=== PATIENT | female | born 1950 | race Caucasian/White ===

== ENCOUNTER → 2016-11-07 | Outpatient (CLI) | payer MEDICARE ==
[~2016-11-07] MED LIST: ACULAR 3ML 3 ML5 ML OPH; DARVOCET N 1001 TAB PO; DIABETA2.5 MG PO; LISINOPRIL5 MG PO; METFORMIN500 MG PO; OCUFLOX 5 ML5 M1 OPH; PRED FORTE 5 ML5 ML OPH
--- NOTE | ~2016-11-07 | WRIGHTHP ---
[place], [place] PATIENT HISTORY AND PHYSICAL EXAM NAME: YAAKOV YODER [facility] #: [id number] UNIT #: [id number] ROOM: DOCTOR: IRMA NavarreteNATALIA BIRTHDATE: [birth year] DOS: 11/07/2016 NEW PATIENT EVALUATION CHIEF COMPLAINT: Diabetic foot ulcer. HISTORY OF PRESENT ILLNESS: This is a 65-year-old female known to me from last year. She had a diabetic foot ulcer of her left great toe that took many, many weeks to heal and also a trial of hyperbaric oxygen. We eventually did heal her ulcer and it has not reopened until just recently. Apparently, she states she has had a wound open now for the past week or so. She went to see her primary care who referred her to Podiatry who in turn referred her back to us. She states she was started on an antibiotic by Podiatry, Bactrim, apparently it was called in for her. She reports that her sugars have been markedly uncontrolled. Her hemoglobin A1c is over 11. She reports that the sponge buffer thought that the issue is from the brace that she wears for her foot drop. She had new diabetic shoes done by Jessica last year and she thinks that they were too small and that somehow the brace rubbed against the toe and created a very large open wound. PAST MEDICAL HISTORY: Significant for hyperlipidemia; hypertension; type 2 diabetes, uncontrolled; history of diabetic foot ulcers; history of osteomyelitis. She is now just on oral agents, it looks like she is on much less oral agents than prior. She has a history of arthritis. PAST SURGICAL HISTORY: She is status post bilateral knee replacements. FAMILY HISTORY: Significant for heart disease. SOCIAL HISTORY: She does not smoke. She is a former smoker. She is , does not drink alcohol or use drugs. ALLERGIES: No known drug allergies. CURRENT MEDICATIONS: Metformin 500 daily, lisinopril 20 daily, estradiol 0.5 mg tablets, ibuprofen 800 daily, vitamin D 2000 unit capsules daily, cetirizine 10 mg tablets daily and benzonatate 100 mg p.o. daily. Her ABIs were done today and they are INR 1.3 on the left and 1.2 on the right. Pedal pulses are palpable both left and right foot. PHYSICAL EXAMINATION: The wound is quite large and measuring 3.5 x 2.4 x 0.3 in depth and it is located on the left great toe, the plantar aspect. It goes all the way almost to the proximal portion of the toe. There is a large amount of devitalized tissue, epidermal and dermal loss that is just kind of hanging there. There is quite a bit of depth to the wound. There is no overt purulence, cellulitis or odor present. A debridement was done. The tissue removed was devitalized tissue as well as fibrin, slough and subcutaneous tissue. This was accomplished with forceps, scissors, and a curette. The patient tolerated the debridement [place], [place] PATIENT HISTORY AND PHYSICAL EXAM NAME: YAAKOV YODER UNIT #: [id number] ROOM: DOCTOR: NATALIA SOLIS M.D. BIRTHDATE: [birth year] well. There was moderate bleeding that was controlled with pressure. Post-debridement swab culture was obtained. ASSESSMENT AND PLAN: Diabetic foot ulcer looks to be at least a Angeles stage 2. It is quite large. It is in a recurrent area of her left great toe where she has had a wound there before that took quite a long time to heal. She has an issue with her shoes and an offloading device. We will see if we can get Aliza to come at her next appointment to evaluate and see what we can offer her as far as offloading devices go. She is on antibiotic already. We did a swab culture. I will go ahead and order an x-ray. She has uncontrolled diabetes and she is aware of it. She states that her PCP wanted to put her on some new medications, but it was unaffordable for her, so she could not use it and we will see if we can arrange the review coordinator to see her at some point and I think she is definitely should have some diabetic teaching as well. An x-ray has been ordered. We will use Maxorb Silver for now and a bulky dressing, postop shoe and have her follow back up in one week. If anything changes before that she is to follow up sooner and to call us. NATALIA SOLIS MD CM:HISPHYS:PATIENT HISTORY AND PHYSICAL EXAMINATION [id number] NATALIA SOLIS M.D. 11/08/16 0814 interface
== END | disposition home or self-care (01) ==
LOC: WOUNDCARE 00:11
DX: E11.621 Type 2 diabetes mellitus with foot ulcer (principal); L97.522 Non-pressure chronic ulcer of other part of left foot with fat layer exposed; I10 Essential (primary) hypertension; E78.5 Hyperlipidemia, unspecified; M19.90 Unspecified osteoarthritis, unspecified site; E11.69 Type 2 diabetes mellitus with other specified complication; M86.9 Osteomyelitis, unspecified; Z87.891 Personal history of nicotine dependence

== ENCOUNTER → 2016-11-08 | Outpatient (CLI) | payer MEDICARE | END | disposition home or self-care (01) | LOC: RAD 11:12 | DX: E11.621 Type 2 diabetes mellitus with foot ulcer (principal); B96.89 Other specified bacterial agents as the cause of diseases classified elsewhere ==

== ENCOUNTER → 2016-11-14 | Outpatient (CLI) | payer MEDICARE ==
--- NOTE | ~2016-11-14 | PR ---
[place], [place] PROGRESS NOTE NAME: YAAKOV YODER [facility] #: [id number] UNIT #: [id number] ROOM: DOCTOR: IRMA NavarreteNATALIA BIRTHDATE: [birth year] DOS: 11/14/2016 WOUND CARE FOLLOWUP NOTE CHIEF COMPLAINT: Diabetic foot ulcer. LOCATION: The location of the wound is left great toe plantar aspect. SUBJECTIVE: The patient is a 65-year-old female with a history of recurrent diabetic foot ulcers that occurred definitely in the same area of left great toe. She has foot drop as well as neuropathy. Her diabetes is uncontrolled and has recently skyrocketed to a hemoglobin A1c of over 11 per patient report. The patient was seen for the first time last week where she was noted to have a very large ulceration of her left great toe with large amount of necrotic tissue that appeared to be secondary to pressure. The culture was done as well and grew Pseudomonas. The patient was started on ciprofloxacin last week, she has been taking it without any complaints. OBJECTIVE: She says overall she thinks the wound is looking better, it drains a fair amount, though there are no fevers or chills. She has occasional discomfort. She has been using her postop shoe that she had obtained from [email or web address] last year and she cut her old AFO brace to accommodate it. In any case, she also states that she has been using just plain soap and water every day to keep the wound clean. The wound is measuring 2.5 x 2.4 x 0.3. It definitely looks better than last week. There is some granulation tissue. There is some undermining at the 1 o'clock position where it looks like almost 2 separate ulcers, but a little tiny pocket of undermining of 0.3 cm was noted. Debridement was done. The tissue removed was hyperkeratosis biofilm and subcutaneous tissue. Instruments utilized was a #15 blade, forceps and scissors to remove the undermined area and a curette. There was a moderate amount of bleeding that was controlled with pressure. The patient tolerated the debridement well. Cetacaine spray was used for topical anesthesia. Timeout was conducted prior to the start of the procedure. Post-debridement measurements are 3.1 x 2.2 x 0.3. Overall, the wound appears a little bit improved to me. X-ray was negative. Her ESR was within normal limits. ASSESSMENT AND PLAN: Diabetic foot ulcer, Angeles stage II that is stable. Clinically, the patient has had osteomyelitis before; however, is not a well-controlled diabetic. ____ came today to give the patient a walking boot and hopefully that will help alleviate some the pressure as well and help offload the area even further. Followup is in one week. [place], [place] PROGRESS NOTE NAME: YAAKOV YODER UNIT #: [id number] ROOM: DOCTOR: NATALIA SOLIS M.D. BIRTHDATE: [birth year] NATALIA SOLIS MD CM:SYHAM [id number] NATALIA SOLIS M.D. 11/15/16 0514 interface
== END | disposition home or self-care (01) ==
LOC: WOUNDCARE 00:58
DX: E11.621 Type 2 diabetes mellitus with foot ulcer (principal); L97.522 Non-pressure chronic ulcer of other part of left foot with fat layer exposed; E11.40 Type 2 diabetes mellitus with diabetic neuropathy, unspecified; E11.69 Type 2 diabetes mellitus with other specified complication; M86.8X7 Other osteomyelitis, ankle and foot

== ENCOUNTER → 2016-11-21 | Outpatient (CLI) | payer MEDICARE ==
--- NOTE | ~2016-11-21 | PR ---
[place], [place] PROGRESS NOTE NAME: YAAKOV YODER [facility] #: [id number] UNIT #: [id number] ROOM: DOCTOR: IRMA NavarreteNATALIA BIRTHDATE: [birth year] DOS: 11/21/2016 CHIEF COMPLAINT: Diabetic foot ulcer. The location of the wound is the left great toe plantar aspect. HISTORY OF PRESENT ILLNESS: This is a 65-year-old female with recurrent diabetic foot ulcers complicated by neuropathy and foot drop. She was given a offloading boot last week and comes in for her followup wound care appointment today. She is on alginate dressing as well as cleansing the wound with Dakin and she did have some pseudomonas growing from it. She comes in without any specific complaints. The wound is tender on occasion. She says it sweats a lot. She sweats a lot while she is in her work boots, but other than that, no new complaints. OBJECTIVE: VITAL SIGNS: Stable. Temperature is 98.7, pulse is 82, respirations are 18, blood pressure is 102/64. WOUND: The wound is measuring 2.8 x 1.8 x 0.3. Actually a large amount of the wound seems to have filled in pretty nicely with good healthy granulation tissue. There is still some maceration noted and some undermining especially on the more distal part of the wound where it actually looks like it is separates into two wounds now instead of one big wound, but there is still some large amount of devitalized tissue as well. Debridement was done. The tissue removed was fibrin, slough and subcutaneous tissue as well as devitalized epidermis and dermis. Instrument used was forceps, scissors and a curette as well as a #15 blade. Moderate bleeding was controlled with pressure. Post-debridement measurements are as follows 2.8 x 2.6 x 0.3. All the undermining area was cut away as well. ASSESSMENT AND PLAN: Diabetic foot ulcer, Angeles Stage 2. Overall, there is really improvement as far as there is no active acute infection. I did advise her to just back down on the Dakin's and only use it once a week. In the meantime, use normal saline for cleansing the wound. I would like to use Arglaes powders to see if we can dry the wound up a little bit more as it is very macerated still. I would like her to continue with alginate and a bulky dressing as well as offloading boot as well. Some sole offloading pads were applied to the areas below and above the callus to see if we can offload this a little bit better. FOLLOWUP: Followup is in one week. Also I do wanted to mention that she knows her diabetic control is poor and is going to be following up with her PCP regarding medications. [place], [place] PROGRESS NOTE NAME: YAAKOV YODER UNIT #: [id number] ROOM: DOCTOR: NATALIA SOLIS M.D. BIRTHDATE: [birth year] NATALIA SOLIS MD CM:PNRAGHU [id number] NATALIA SOLIS M.D. 11/22/16 0605 interface
== END | disposition home or self-care (01) ==
LOC: WOUNDCARE 03:45
DX: E11.621 Type 2 diabetes mellitus with foot ulcer (principal); L97.522 Non-pressure chronic ulcer of other part of left foot with fat layer exposed; E11.40 Type 2 diabetes mellitus with diabetic neuropathy, unspecified; B96.5 Pseudomonas (aeruginosa) (mallei) (pseudomallei) as the cause of diseases classified elsewhere

== ENCOUNTER → 2016-11-29 | Outpatient (CLI) | payer MEDICARE ==
--- NOTE | ~2016-11-29 | PR ---
[place], [place] PROGRESS NOTE NAME: YAAKOV YODER [facility] #: [id number] UNIT #: [id number] ROOM: DOCTOR: IRMA Navarrete,NATALIA BIRTHDATE: [birth year] DOS: 11/29/2016 CHIEF COMPLAINT: Followup of diabetic foot ulcer. HISTORY OF PRESENT ILLNESS: The location of the wound is the left great toe. It is in plantar aspect. It is a recurrent ulceration. She has been coming to the [facility]ound Clinic for 3 weeks now. She has uncontrolled diabetes. Previous culture grew some pseudomonas. She was started on Dakin's. She had quite a bit of drainage on last occasion. She is on alginate dressing. She comes in today without any specific complaints and says she is completing a course of antibiotics and almost finished with them. PHYSICAL EXAMINATION: VITAL SIGNS: Stable. Temperature is 98.1, pulse is 66, respirations 18, blood pressure of 100/56. The wound is measuring 1.2 x 1.1 x 0.2. The wound is looking much better than it did when she first presented. There is a lot of dried hyperkeratosis around the periwound. It is definitely filling in and epithelializing. The maceration has also improved quite a bit. A selective debridement was done just to remove fibrin, slough and hyperkeratotic area. This was accomplished with forceps, scissors and a 15 blade. The patient tolerated the debridement well. Post-debridement measurements are slightly bigger 1.4 x 1.1 x 0.2. ASSESSMENT AND PLAN: Diabetic foot ulcer that is definitely improving. We will continue with the current regimen. We prescribed Arglaes powder, but she has not got it yet, so hopefully when she gets that, that that will help as well, but overall it does seem to be definitely improving. NATALIA SOLIS MD CM:SHYAM [id number] NATALIA SOLIS M.D. 11/30/16 0552 interface
== END | disposition home or self-care (01) ==
LOC: WOUNDCARE 03:15
DX: E11.621 Type 2 diabetes mellitus with foot ulcer (principal); L97.522 Non-pressure chronic ulcer of other part of left foot with fat layer exposed

== ENCOUNTER → 2016-12-05 | Outpatient (CLI) | payer MEDICARE ==
--- NOTE | ~2016-12-05 | PR ---
[place], [place] PROGRESS NOTE NAME: YAAKOV YODER [facility] #: [id number] UNIT #: [id number] ROOM: DOCTOR: NATALIA SOLIS M.D. BIRTHDATE: [birth year] DOS: 12/05/2016 CHIEF COMPLAINT: Followup of diabetic foot ulcer. SUBJECTIVE: The location of the wound is left great toe. It is on the plantar aspect, it is recurrent ulcerations and she has been coming to the Wound Clinic for 4 weeks now. The wound has been steadily improving. She offers no specific complaints. No fevers or chills are noted. OBJECTIVE: VITAL SIGNS: Temperature is 98.2, pulse is 74, respirations 18, blood pressure is 122/78. SKIN: The wound is measuring 1.1 x 0.6 x 0.1. It definitely looks good. It is getting smaller. There is no sign of infection. There is still a lot of hyperkeratotic callus around the wound, but it is definitely improving. Selective debridement was done to remove hyperkeratotic callus as well as biofilm. This occurred with scalpel. There was moderate bleeding, controlled with pressure. Post-debridement measurements are unchanged. The patient tolerated the procedure well. ASSESSMENT AND PLAN: Diabetic foot ulcer, Angeles stage I. It is definitely improving. We will continue with current regimen, have her follow up in one week. NATALIA SOLIS MD CM:SHYAM [id number] NATALIA SOLIS M.D. 12/06/16 1030 interface
== END | disposition home or self-care (01) ==
LOC: WOUNDCARE 01:55
DX: E11.621 Type 2 diabetes mellitus with foot ulcer (principal); L97.522 Non-pressure chronic ulcer of other part of left foot with fat layer exposed; L84 Corns and callosities

== ENCOUNTER → 2016-12-14 | Outpatient (CLI) | payer MEDICARE | END | disposition home or self-care (01) | LOC: WOUNDCARE 01:49 | DX: E11.621 Type 2 diabetes mellitus with foot ulcer (principal); L97.522 Non-pressure chronic ulcer of other part of left foot with fat layer exposed; I10 Essential (primary) hypertension; E78.5 Hyperlipidemia, unspecified; M19.90 Unspecified osteoarthritis, unspecified site; Z87.891 Personal history of nicotine dependence ==

== ENCOUNTER → 2016-12-21 | Outpatient (CLI) | payer MEDICARE | END | disposition home or self-care (01) | LOC: WOUNDCARE 02:30 | DX: E11.621 Type 2 diabetes mellitus with foot ulcer (principal); L97.522 Non-pressure chronic ulcer of other part of left foot with fat layer exposed; I10 Essential (primary) hypertension; E78.5 Hyperlipidemia, unspecified; M19.90 Unspecified osteoarthritis, unspecified site; Z87.891 Personal history of nicotine dependence ==

== ENCOUNTER → 2016-12-28 | Outpatient (CLI) | payer MEDICARE | END | disposition home or self-care (01) | LOC: WOUNDCARE 01:10 | DX: E11.621 Type 2 diabetes mellitus with foot ulcer (principal); L97.522 Non-pressure chronic ulcer of other part of left foot with fat layer exposed; I10 Essential (primary) hypertension; E78.5 Hyperlipidemia, unspecified; M19.90 Unspecified osteoarthritis, unspecified site; Z87.891 Personal history of nicotine dependence ==

== ENCOUNTER → 2017-01-04 | Outpatient (CLI) | payer MEDICARE | END | disposition home or self-care (01) | LOC: WOUNDCARE 04:00 | DX: E11.621 Type 2 diabetes mellitus with foot ulcer (principal); L97.522 Non-pressure chronic ulcer of other part of left foot with fat layer exposed; I10 Essential (primary) hypertension; E78.5 Hyperlipidemia, unspecified; M19.90 Unspecified osteoarthritis, unspecified site; Z96.653 Presence of artificial knee joint, bilateral; Z87.891 Personal history of nicotine dependence ==

== ENCOUNTER → 2017-01-11 | Outpatient (CLI) | payer MEDICARE | LOC: WOUNDCARE 01:09 | DX: E11.621 Type 2 diabetes mellitus with foot ulcer (principal); L97.522 Non-pressure chronic ulcer of other part of left foot with fat layer exposed; I10 Essential (primary) hypertension; E78.5 Hyperlipidemia, unspecified; M19.90 Unspecified osteoarthritis, unspecified site; Z87.891 Personal history of nicotine dependence ==

== ENCOUNTER → 2017-01-18 | Outpatient (CLI) | payer MEDICARE | END | disposition home or self-care (01) | LOC: WOUNDCARE 04:37 | DX: E11.621 Type 2 diabetes mellitus with foot ulcer (principal); L97.522 Non-pressure chronic ulcer of other part of left foot with fat layer exposed; I10 Essential (primary) hypertension; E78.5 Hyperlipidemia, unspecified; M19.90 Unspecified osteoarthritis, unspecified site; Z87.891 Personal history of nicotine dependence ==

== ENCOUNTER → 2017-01-25 | Outpatient (CLI) | payer MEDICARE | END | disposition home or self-care (01) | LOC: WOUNDCARE 03:59 | DX: E11.621 Type 2 diabetes mellitus with foot ulcer (principal); L97.522 Non-pressure chronic ulcer of other part of left foot with fat layer exposed; I10 Essential (primary) hypertension; E78.5 Hyperlipidemia, unspecified; M19.90 Unspecified osteoarthritis, unspecified site; Z87.891 Personal history of nicotine dependence ==

== ENCOUNTER → 2017-02-01 | Outpatient (CLI) | payer MEDICARE | END | disposition home or self-care (01) | LOC: WOUNDCARE 04:28 | DX: E11.621 Type 2 diabetes mellitus with foot ulcer (principal); L97.522 Non-pressure chronic ulcer of other part of left foot with fat layer exposed; I10 Essential (primary) hypertension; E78.5 Hyperlipidemia, unspecified; M19.90 Unspecified osteoarthritis, unspecified site; Z87.891 Personal history of nicotine dependence ==

== ENCOUNTER → 2017-02-08 | Outpatient (CLI) | payer MEDICARE | END | disposition home or self-care (01) | LOC: WOUNDCARE 01:03 | DX: E11.621 Type 2 diabetes mellitus with foot ulcer (principal); L97.522 Non-pressure chronic ulcer of other part of left foot with fat layer exposed; I10 Essential (primary) hypertension; E78.5 Hyperlipidemia, unspecified; M19.90 Unspecified osteoarthritis, unspecified site; Z87.891 Personal history of nicotine dependence ==

== ENCOUNTER → 2017-02-15 | Outpatient (CLI) | payer MEDICARE | END | disposition home or self-care (01) | LOC: WOUNDCARE 02:19 | DX: E11.621 Type 2 diabetes mellitus with foot ulcer (principal); L97.522 Non-pressure chronic ulcer of other part of left foot with fat layer exposed; I10 Essential (primary) hypertension; E78.5 Hyperlipidemia, unspecified; M19.90 Unspecified osteoarthritis, unspecified site; Z87.891 Personal history of nicotine dependence ==

== ENCOUNTER → 2017-07-25 | Outpatient (CLI) | payer MEDICARE | END | disposition home or self-care (01) | LOC: MAMMO 16:22 | DX: Z12.31 Encounter for screening mammogram for malignant neoplasm of breast (principal) ==

== ENCOUNTER → 2017-10-17 | Outpatient (CLI) | payer MEDICARE | END | disposition home or self-care (01) | LOC: MAMMO 13:05 | DX: R92.8 Other abnormal and inconclusive findings on diagnostic imaging of breast (principal) ==

== ENCOUNTER → 2017-10-31 | Day surgery (SDC) | payer MEDICARE ==
[2017-10-31 13:48] LABS: ACT PARTIAL THROMBO TIME 24.3 SECONDS (20.8-31.5); INTERNATIONAL NORM RATIO 0.9 (2.0-3.5)
== END | disposition home or self-care (01) ==
LOC: SDC 04:25
PROVIDERS: Internal Medicine
DX: C50.811 Malignant neoplasm of overlapping sites of right female breast (principal); R92.8 Other abnormal and inconclusive findings on diagnostic imaging of breast; Z79.01 Long term (current) use of anticoagulants

== ENCOUNTER 2018-11-19 11:53 | Inpatient (IN) | payer MEDICARE ==
[~2018-11-19] VITALS: Ht 165 cm; Wt 67.0 kg
--- NOTE | ~2018-11-19 | EKG ---
[place], [place] ELECTROCARDIOGRAM REPORT NAME: YAAKOV YODER UNIT #: [id number] ROOM: 507 DOCTOR: CLARISA DRAFT REPORT BIRTHDATE: [birth year] [facility] Test Date: 2018-11-19 Test Time: 12:14:14 Pat Name: YAAKOV YODER Department: Room: 507 Gender: F Nfl Player: Ashley Barkley : 1950 Requested By: SHIRA MARCUS Order Number: [id number] Reading MD: Quinten Nicole MD Measurements Intervals [place] Rate: 80 P: 22 AR: 161 QRS: 46 QRSD: 97 T: 13 QT: 444 QTc: 513 Interpretive Statements Sinus rhythm Nonspecific ST changes Prolonged QT interval Electronically Signed On 11-20-2018 4:43:38 PDT by Quinten Nicole MD CM:EKGRPT:ELECTROCARDIOGRAM REPORT [id number] SHIRA MARCUS EPIPHANY DRAFT REPORT SHIRA MARCUS
[2018-11-19 11:56] VITALS: BP 112/49
[2018-11-19 12:27] LABS: BASO % 0.4 % (0.0-1.0); HEMOGLOBIN 9.3 g/dl (12.0-16.0); LYMPH % 17.7 % (27.0-41.0); MEAN CELL VOLUME 92.1 fl (81.0-99.0); MEAN CORPUSCULAR HGB 30.6 pg (27.0-31.0); MEAN CORPUSCULAR HGB CONC 33.2 g/dl (33.0-37.0); MEAN PLATELET VOLUME 10.1 fl (9.6-12.3); MONO # 0.5 10*3/uL (0.1-1.0); MONO % 9.5 % (3.0-9.0); NEUT % 71.9 % (47.0-73.0); PLATELET COUNT AUTOMATED 267 10*3/uL (130-400); RED BLOOD COUNT 3.04 10*6/uL (4.10-5.10); RED CELL DISTRI WIDTH 13.8 % (0-14.5); WHITE BLOOD COUNT 5.6 10*3/uL (4.8-10.8)
[2018-11-19 12:43] LABS: ALBUMIN 2.5 gm/dl (3.1-4.5); ALKALINE PHOSPHATASE 136 U/L (45-117); BUN 13 mg/dl (7-24); CHLORIDE 95 mmol/L (98-107); CREATININE 1.05 mg/dL (0.55-1.02); SGOT/AST 10 IU/L (3-35); SGPT/ALT 19 U/L (12-78); SODIUM 130 mmol/L (136-145); TOTAL PROTEIN 6.9 gm/dL (6.4-8.2)
[2018-11-19] MEDS ORDERED: LISINOPRIL20 MG PO (12:43)
[2018-11-19] MEDS ORDERED: VITAMIN D-32000 UNI1 PO (12:44)
[2018-11-19] MEDS ORDERED: METFORMIN HYDR500 MG PO (12:44)
[2018-11-19] MEDS ORDERED: GLIPIZIDE10 M2 PO (12:44)
[2018-11-19 12:50] LABS: TROPONIN I < 0.015 ng/ml (<0.045)
[2018-11-19 12:51] LABS: POTASSIUM 2.1 mmol/L (3.5-5.1)
[2018-11-19 14:08] VITALS: BP 98/47
[2018-11-19 16:00] VITALS: BP 119/51
[2018-11-19 20:00] VITALS: BP 110/51
[2018-11-20] VITALS: BP 106/56
[2018-11-20 06:25] LABS: BASO % 0.4 % (0.0-1.0); EOS % 0.2 % (1.0-4.0); HEMATOCRIT 27.2 % (37.0-47.0); HEMOGLOBIN 8.9 g/dl (12.0-16.0); LYMPH # 1.6 10*3/uL (1.3-4.4); LYMPH % 30.4 % (27.0-41.0); MEAN CELL VOLUME 92.8 fl (81.0-99.0); MEAN CORPUSCULAR HGB 30.4 pg (27.0-31.0); MEAN CORPUSCULAR HGB CONC 32.7 g/dl (33.0-37.0); MEAN PLATELET VOLUME 10.1 fl (9.6-12.3); MONO # 0.6 10*3/uL (0.1-1.0); MONO % 10.7 % (3.0-9.0); NEUT % 57.5 % (47.0-73.0); PLATELET COUNT AUTOMATED 284 10*3/uL (130-400); RED BLOOD COUNT 2.93 10*6/uL (4.10-5.10); RED CELL DISTRI WIDTH 13.7 % (0-14.5); WHITE BLOOD COUNT 5.2 10*3/uL (4.8-10.8)
[2018-11-20 06:33] LABS: BUN 13 mg/dl (7-24); CHLORIDE 105 mmol/L (98-107); CHOLESTEROL 120 mg/dL (<200); CREATININE 0.75 mg/dL (0.55-1.02); HDL CHOLESTEROL 30 mg/dl (40-60); LDL CHOLESTEROL 54 mg/dL (9-159); PHOSPHOROUS 1.7 mg/dL (2.5-4.9); POTASSIUM 2.6 mmol/L (3.5-5.1); SODIUM 140 mmol/L (136-145); TRIGLYCERIDES 179 mg/dl (<150); VLDL CHOLESTEROL 36 mg/dL (6-40)
[2018-11-20 08:00] VITALS: BP 106/72
[2018-11-20 12:00] VITALS: BP 100/48
[2018-11-20] MEDS ORDERED: POTASSIUM CHLO20 ME3 PO (13:22)
== END 2018-11-20 14:24 | disposition home or self-care (01) | DRG 640 ==
LOC: ED 11:53 → 5E 13:07 → EDHOLD 13:07 → 5E 13:28
PROVIDERS: Nurse Practitioner Family; Student in an Organized Health Care Education/Training Program; ADMIT Internal Medicine
DX: E87.6 Hypokalemia (principal); E43 Unspecified severe protein-calorie malnutrition; E87.1 Hypo-osmolality and hyponatremia; D64.9 Anemia, unspecified; E87.8 Other disorders of electrolyte and fluid balance, not elsewhere classified; E11.65 Type 2 diabetes mellitus with hyperglycemia; R74.8 Abnormal levels of other serum enzymes; N18.3 Chronic kidney disease, stage 3 (moderate); I12.9 Hypertensive chronic kidney disease with stage 1 through stage 4 chronic kidney disease, or unspecified chronic kidney disease; Z96.651 Presence of right artificial knee joint; C50.919 Malignant neoplasm of unspecified site of unspecified female breast; E11.22 Type 2 diabetes mellitus with diabetic chronic kidney disease; E66.3 Overweight; D89.9 Disorder involving the immune mechanism, unspecified; S91.102A Unspecified open wound of left great toe without damage to nail, initial encounter; X58.XXXA Exposure to other specified factors, initial encounter; Y93.89 Activity, other specified; Y92.89 Other specified places as the place of occurrence of the external cause; Y99.8 Other external cause status; Z92.21 Personal history of antineoplastic chemotherapy; Z87.891 Personal history of nicotine dependence; Z80.8 Family history of malignant neoplasm of other organs or systems; Z79.899 Other long term (current) drug therapy; Z79.84 Long term (current) use of oral hypoglycemic drugs; Z82.49 Family history of ischemic heart disease and other diseases of the circulatory system; Z83.3 Family history of diabetes mellitus; Z84.1 Family history of disorders of kidney and ureter; Z68.24 Body mass index [BMI] 24.0-24.9, adult

== ENCOUNTER 2019-12-06 19:06 | Inpatient (IN) | payer MEDICARE ==
[~2019-12-06] VITALS: Ht 165.1 cm; Wt 69.8 kg
[~2019-12-06 19:06] MED LIST changes: +GLIPIZIDE10 M2 PO; +LISINOPRIL20 MG PO; +METFORMIN HYDR500 MG PO; +POTASSIUM CHLO20 ME3 PO; +VITAMIN D-32000 UNI1 PO
[2019-12-06 19:10] VITALS: BP 148/112
[2019-12-06 19:52] LABS: BASO % 0.1 % (0.0-1.0); EOS # 0.1 10*3/uL (0.0-0.4); EOS % 0.7 % (1.0-4.0); HEMATOCRIT 32.7 % (37.0-47.0); LYMPH # 1.6 10*3/uL (1.3-4.4); LYMPH % 21.8 % (27.0-41.0); MEAN CELL VOLUME 89.8 fl (81.0-99.0); MEAN CORPUSCULAR HGB 30.2 pg (27.0-31.0); MEAN CORPUSCULAR HGB CONC 33.6 g/dl (33.0-37.0); MEAN PLATELET VOLUME 10.1 fl (9.6-12.3); MONO # 0.8 10*3/uL (0.1-1.0); MONO % 11.8 % (3.0-9.0); NEUT # 4.6 10*3/uL (2.3-7.9); PLATELET COUNT AUTOMATED 349 10*3/uL (130-400); RED BLOOD COUNT 3.64 10*6/uL (4.10-5.10); RED CELL DISTRI WIDTH 12.3 % (0-14.5); WHITE BLOOD COUNT 7.1 10*3/uL (4.8-10.8)
[2019-12-06 20:11] LABS: ALKALINE PHOSPHATASE 161 U/L (45-117); BUN 25 mg/dl (7-24); CHLORIDE 100 mmol/L (98-107); CREATININE 0.97 mg/dL (0.55-1.02); POTASSIUM 4.6 mmol/L (3.5-5.1); SGOT/AST 8 IU/L (3-35); SGPT/ALT 14 U/L (12-78); SODIUM 130 mmol/L (136-145); TOTAL PROTEIN 8.2 gm/dL (6.4-8.2)
[2019-12-06 20:17] LABS: THYROID STIM HORMONE (HS) 0.163 uIU/ml (0.358-4.75)
[2019-12-06 20:20] LABS: TROPONIN I < 0.015 ng/ml (<0.045)
[2019-12-06 21:00] LABS: BILIRUBIN NEGATIVE; CLARITY CLEAR (CLEAR); COLOR YELLOW (YELLOW); GLUCOSE 3+; KETONE NEGATIVE; SPECIFIC GRAVITY > 1.030 (1.001-1.030)
[2019-12-06 21:01] LABS: BACTERIA TRACE; BLOOD NEGATIVE (NEGATIVE); LEUKO ESTERASE NEGATIVE (NEGATIVE); NITRITE NEGATIVE (NEGATIVE); UROBILINOGEN 0.2 E.U./dl (0.0-1.0); YEAST TRACE
[2019-12-06 21:13] VITALS: BP 120/61
[2019-12-06 22:40] VITALS: BP 132/70
--- NOTE | 2019-12-06 22:40 | NUR ---
A 69, admitted to , under the services of ALLISON aDvid DO with a diagnosis of DIABETIC FOOT ULCER, HYPOKALEMIA, UNCONTROLLED DIABETES MELLITUS. Chief complaint is WOUND CHECK. Patient arrived via ambulatory from ER. Monitor applied. Initial assessment completed. Vital signs taken and recorded. ALLISON DAVID DO notified of admission to the unit. Orders received. See assessment for past medical history, medications and allergies. Patient and/or family oriented to unit. [facility]. Clothing/patient valuable form completed. TANISHA CRUZ
--- NOTE | 2019-12-06 23:32 | NUR ---
[facility] ANSWERING SERVICE NOTIFIED OF NEW CONSULT FOR DIABETIC FOOT WOUND.
--- NOTE | 2019-12-06 23:40 | NUR ---
PODIATRY RESIDENT NOTIFIED OF NEW CONSULT FOR DIABETIC FOOT WOUND AND LONG TOE NAILS. LABS AND WOUND REVIEWED. DR. TRAVIS SEE IN THE MORNING.
--- NOTE | 2019-12-06 23:42 | NUR ---
DR. BRAND NOTIFIED OF PT'S HOME MEDS UTD.
[2019-12-07] VITALS: BP 120/61
[2019-12-07 06:36] LABS: BASO % 0.3 % (0.0-1.0); EOS # 0.1 10*3/uL (0.0-0.4); EOS % 0.7 % (1.0-4.0); HEMATOCRIT 36.4 % (37.0-47.0); LYMPH % 28.5 % (27.0-41.0); MEAN CELL VOLUME 92.6 fl (81.0-99.0); MEAN CORPUSCULAR HGB 29.5 pg (27.0-31.0); MEAN CORPUSCULAR HGB CONC 31.9 g/dl (33.0-37.0); MEAN PLATELET VOLUME 10.4 fl (9.6-12.3); MONO # 0.7 10*3/uL (0.1-1.0); MONO % 9.9 % (3.0-9.0); NEUT # 4.1 10*3/uL (2.3-7.9); NEUT % 59.9 % (47.0-73.0); PLATELET COUNT AUTOMATED 382 10*3/uL (130-400); RED BLOOD COUNT 3.93 10*6/uL (4.10-5.10); RED CELL DISTRI WIDTH 12.4 % (0-14.5); WHITE BLOOD COUNT 6.9 10*3/uL (4.8-10.8)
[2019-12-07 07:10] LABS: BUN 18 mg/dl (7-24); CHLORIDE 107 mmol/L (98-107); CHOLESTEROL 168 mg/dL (<200); CREATININE 0.81 mg/dL (0.55-1.02); HDL CHOLESTEROL 44 mg/dl (40-60); LDL CHOLESTEROL 90 mg/dL (9-159); SODIUM 137 mmol/L (136-145); TRIGLYCERIDES 172 mg/dl (<150); VLDL CHOLESTEROL 34 mg/dL (6-40)
[2019-12-07 07:16] LABS: FREE T4 1.27 ng/dl (0.76-1.46)
--- NOTE | 2019-12-07 11:09 | NUR ---
THU in to talk to patient. Patient states lives at home with 3 grown sons. There are 3 steps in the home. Physician: no PCP, denies referral to [facility] Home health services: no Patient's level of ADLs: INDEPENDENT Patient has working utilities: yes DME: walker,cane, wheelchair formerly used by pt's who is now Follow-up physician's appointment after d/c: Pt wants to schedule herself Does patient want to access PORTAL?: no Discharge plan Pt states that she resides with her 3 grown sons. She has a ramp at one entrance to her trailer and 3 steps at the other entrance. Pt states that her PCP retired and she has yet to become established with a new PCP. Spoke to pt about the [facility]. Pt denies the need for this referral stating that she would rather find her own PCP. Confirmed with pt the importance of PCP follow-up. Discussed services after discharge. Pt stated that she is not interested in [facility]. Pt was pleasant but firm in stating that she will not have any discharge needs. ALBER WITT
[2019-12-07 12:00] VITALS: BP 121/68
[2019-12-07 16:00] VITALS: BP 111/76
--- NOTE | 2019-12-07 19:00 | NUR ---
ASSUMED CARE FOR THIS PT AT THIS TIME. PT AWAKE IN BED WATCHING TV. PT DENIES NEED FOR PAIN MED. DRSG TO LT FOOT DRY/INTACT. + LEFT POPLITEAL PULSE PALPATED. CALL LIGHT IN REACH.
[2019-12-07 20:00] VITALS: BP 98/53
[2019-12-08] VITALS: BP 119/67
--- NOTE | 2019-12-08 08:00 | NUR ---
IN TO ROOM, PATIENT AWAKE, ALERT AND ORIENTED. RESPIRATIONS ARE EASY AND REGULAR ON ROOM AIR. PT STATES SHE IS HAVING SOME PAIN IN HER LEFT TOE, RATED AT A 5. PT EDUCATED ON PAIN MANAGEMENT. PT IS ABLE TO REPOSITION SELF AND IS ENCOURAGED TO DO SO. BED IN LOWEST LOCKED POSITION AND CALL LIGHT WITHIN REACH. WILL CONTINUE TO MONITOR.
--- NOTE | 2019-12-08 08:32 | NUR ---
PT COMPLAINS OF LEFT TOE PAIN RATED AT A 5. PRN NORCO ADMINISTERED. WILL MONITOR FOR EFFECTIVENESS.
--- NOTE | 2019-12-08 09:15 | NUR ---
PT STATES THAT HER PAIN IN BETTER. NORCO CONSIDERED EFFECTIVE.
[2019-12-08 12:00] VITALS: BP 110/70
--- NOTE | 2019-12-08 13:00 | NUR ---
PATIENT AWAKE, ALERT AND ORIENTED. NO STATED COMPLAINTS AT THIS TIME. ANTIBIOTICS RUNNING. RESPIRATIONS ARE EASY AND REGULAR, NO DISTRESS NOTED. BED IN LOWEST LOCKED POSITION AND CALL LIGHT WITHIN REACH. DRESSING TO LEFT FOOT INTACT. WILL CONTINUE TO MONITOR.
[2019-12-08 16:00] VITALS: BP 123/72
[2019-12-08 20:00] VITALS: BP 130/72
[2019-12-09] VITALS: BP 122/72
--- NOTE | 2019-12-09 02:56 | NUR ---
24 HR chart check completed.
[2019-12-09 06:14] LABS: BUN 15 mg/dl (7-24); CHLORIDE 110 mmol/L (98-107); CREATININE 0.77 mg/dL (0.55-1.02); POTASSIUM 3.8 mmol/L (3.5-5.1); SODIUM 138 mmol/L (136-145)
[2019-12-09 06:30] LABS: BASO % 0.4 % (0.0-1.0); EOS # 0.1 10*3/uL (0.0-0.4); EOS % 1.7 % (1.0-4.0); HEMATOCRIT 34.4 % (37.0-47.0); LYMPH % 41.7 % (27.0-41.0); MEAN CORPUSCULAR HGB 29.8 pg (27.0-31.0); MEAN CORPUSCULAR HGB CONC 31.7 g/dl (33.0-37.0); MEAN PLATELET VOLUME 10.4 fl (9.6-12.3); MONO # 0.5 10*3/uL (0.1-1.0); MONO % 9.8 % (3.0-9.0); NEUT # 2.2 10*3/uL (2.3-7.9); NEUT % 45.1 % (47.0-73.0); PLATELET COUNT AUTOMATED 352 10*3/uL (130-400); RED BLOOD COUNT 3.66 10*6/uL (4.10-5.10); RED CELL DISTRI WIDTH 12.6 % (0-14.5); WHITE BLOOD COUNT 4.8 10*3/uL (4.8-10.8)
[2019-12-09 08:00] VITALS: BP 134/67
--- NOTE | 2019-12-09 09:00 | NUR ---
Radio Artist in to talk to patient. Patient states lives at home with her 2 sons. There are 0 steps in the home. Physician: no family physician. She was seeing Dr. Lisseth Seigel. [facility] Home health services: none Patient's level of ADLs: MINIMAL ASSIST Patient has working utilities: yes DME: walker, wheelchair Follow-up physician's appointment after d/c: will be made by the hospitalist nurse director upon discharge Does patient want to access PORTAL?: no Discharge plan discussed with patient. She lives at home with her 2 sons. She states she is independent in her ADLs and ambulation. She has a walker and a wheelchair at home if needed. Discussed short term rehab and home health care services and she declines. CM will continue to follow for any discharge planning needs. She states she is waiting for her discharge and if she is not discharged today she knows how to sign herself out. When medically stable she will be discharged to home. She states she drove herself here and will drive herself home. DELANO HO
[2019-12-09] MEDS ORDERED: ATORVASTATIN CA40 M1 PO (10:24)
[2019-12-09] MEDS ORDERED: OMNICEF300 MG PO (10:24)
[2019-12-09] MEDS ORDERED: DOXYCYCLINE100 M3 PO (10:24)
[2019-12-09] MEDS ORDERED: HUMALOG100 UNIT/1 SC (10:24)
[2019-12-09] MEDS ORDERED: LANTUS SOL100 UNIT/1 SC (10:24)
--- NOTE | 2019-12-09 12:17 | NUR ---
Discharge instructions reviewed with patient/family. Patient receptive and verbalizes understanding. Follow-up care arranged. Written instructions given to patient/family. JAKUB ORTIZ
== END 2019-12-09 12:17 | disposition home or self-care (01) | DRG 638 ==
LOC: ED 19:06 → EDHOLD 21:27 → 5E 21:27
PROVIDERS: Emergency Medicine Emergency Medical Services; Family Medicine; Student in an Organized Health Care Education/Training Program; ADMIT Student in an Organized Health Care Education/Training Program; ATTEND Student in an Organized Health Care Education/Training Program
PROC: 0H9NXZZ Drainage of Left Foot Skin, External Approach (ICD-10-PCS; principal; 2019-12-06)
DX: E11.621 Type 2 diabetes mellitus with foot ulcer (principal); E44.0 Moderate protein-calorie malnutrition; E87.1 Hypo-osmolality and hyponatremia; E11.65 Type 2 diabetes mellitus with hyperglycemia; L97.522 Non-pressure chronic ulcer of other part of left foot with fat layer exposed; D72.810 Lymphocytopenia; R79.82 Elevated C-reactive protein (CRP); E87.6 Hypokalemia; E66.3 Overweight; D64.9 Anemia, unspecified; E11.22 Type 2 diabetes mellitus with diabetic chronic kidney disease; N18.3 Chronic kidney disease, stage 3 (moderate); L03.032 Cellulitis of left toe; I12.9 Hypertensive chronic kidney disease with stage 1 through stage 4 chronic kidney disease, or unspecified chronic kidney disease; E78.5 Hyperlipidemia, unspecified; E55.9 Vitamin D deficiency, unspecified; Z82.49 Family history of ischemic heart disease and other diseases of the circulatory system; Z79.4 Long term (current) use of insulin; Z83.3 Family history of diabetes mellitus; Z84.1 Family history of disorders of kidney and ureter; Z68.25 Body mass index [BMI] 25.0-25.9, adult

== ENCOUNTER 2020-02-27 23:42 | Inpatient (IN) | payer MEDICARE ==
[~2020-02-27] VITALS: Ht 160 cm; Wt 81.4 kg
[~2020-02-27 23:42] MED LIST changes: +ATORVASTATIN CA40 M1 PO; +DOXYCYCLINE100 M3 PO; +HUMALOG100 UNIT/1 SC; +LANTUS SOL100 UNIT/1 SC; +OMNICEF300 MG PO
[2020-02-27 23:49] VITALS: BP 168/95
[2020-02-28] VITALS (9 sets, daily range): BP systolic 107–167; BP diastolic 46–117
[2020-02-28 00:12] LABS: BASO % 0.2 % (0.0-1.0); EOS % 0.2 % (1.0-4.0); HEMATOCRIT 29.8 % (37.0-47.0); LYMPH # 0.8 10*3/uL (1.3-4.4); LYMPH % 16.5 % (27.0-41.0); MEAN CELL VOLUME 94.3 fl (81.0-99.0); MEAN CORPUSCULAR HGB 27.5 pg (27.0-31.0); MEAN CORPUSCULAR HGB CONC 29.2 g/dl (33.0-37.0); MEAN PLATELET VOLUME 9.4 fl (9.6-12.3); MONO # 0.2 10*3/uL (0.1-1.0); MONO % 3.6 % (3.0-9.0); NEUT # 3.9 10*3/uL (2.3-7.9); NEUT % 78.9 % (47.0-73.0); PLATELET COUNT AUTOMATED 435 10*3/uL (130-400); RED BLOOD COUNT 3.16 10*6/uL (4.10-5.10)
[2020-02-28 00:28] LABS: ALBUMIN 3.1 gm/dl (3.1-4.5); ALKALINE PHOSPHATASE 192 U/L (45-117); BUN 28 mg/dl (7-24); CHLORIDE 106 mmol/L (98-107); CREATININE 0.89 mg/dL (0.55-1.02); POTASSIUM 4.9 mmol/L (3.5-5.1); SGOT/AST 49 IU/L (3-35); SGPT/ALT 40 U/L (12-78); SODIUM 136 mmol/L (136-145); TOTAL PROTEIN 8.5 gm/dL (6.4-8.2)
[2020-02-28 01:52] LABS: ARTERIAL BLOOD GAS PH 7.336 (7.35-7.45)
[2020-02-28 01:53] LABS: ABG BASE EXCESS -7.3 mmol/L (-2.0-2.0)
[2020-02-28] MEDS ORDERED: ASPIRIN ADULT L81 M2 PO (04:53)
[2020-02-28] MEDS ORDERED: AMIODARONE HCL400 MG PO (04:53)
[2020-02-28] MEDS ORDERED: LIPITOR20 MG PO (04:55)
[2020-02-28] MEDS ORDERED: DAKIN'S473 ML T (05:00)
[2020-02-28] MEDS ORDERED: DECADRON6 M1 PO (05:02)
[2020-02-28] MEDS ORDERED: LASIX40 MG PO (05:05)
[2020-02-28] MEDS ORDERED: SENNA PLUS 8.61 EACH PO (05:07)
[2020-02-28] MEDS ORDERED: ZINC SULFATE220 M2 PO (05:09)
[2020-02-28] MEDS ORDERED: VITAMIN D250 MC1 PO (05:12)
[2020-02-28] MEDS ORDERED: GLUCOTROL10 MG PO (05:13)
[2020-02-28] MEDS ORDERED: LANTUS SOL100 UNIT/1 SC (05:14)
[2020-02-28] MEDS ORDERED: K-TAB20 MEQ PO (05:16)
[2020-02-28] MEDS ORDERED: [UNRECOGNIZED DRUG - CODE] IJ (05:24)
[2020-02-28] MEDS ORDERED: [UNRECOGNIZED DRUG - OTHER] PO (05:25)
[2020-02-28] MEDS ORDERED: EMERGEN-C 500500 MG PO (05:27)
[2020-02-28] MEDS ORDERED: PAIN RELIEVER650 MG PO (05:28)
--- NOTE | 2020-02-28 05:30 | NUR ---
MED REC COMPLETED
[2020-02-28 06:22] LABS: INTERNATIONAL NORM RATIO 2.2 (2.0-3.5)
--- NOTE | 2020-02-28 08:07 | NUR ---
I CALLED THE PATIENT BREAKFAST TRAY IN
--- NOTE | 2020-02-28 09:11 | NUR ---
THE PATIENT TOOK HER BIPAP OFF TO EAT. THE NC WAS PUT BACK ON.
--- NOTE | 2020-02-28 10:09 | NUR ---
THE [facility] BED IS NOT READY YET FOR THE PATIENT
--- NOTE | 2020-02-28 11:00 | NUR ---
DR PONCE NOTIFIED OF NEW CONSULT FOR COVID 19. PT CURRENTLY STILL IN ED. HE WILL ROUND IN ED AND SEE PT.
[2020-02-28 11:36] LABS: ARTERIAL BLOOD GAS PH 7.367 (7.35-7.45)
[2020-02-28 11:38] LABS: VITAMIN D, 25-HYDROXY 37.9 ng/mL (30-100)
[2020-02-28 11:42] LABS: ABG BASE EXCESS -5.6 mmol/L (-2.0-2.0)
--- NOTE | 2020-02-28 12:45 | NUR ---
A 69, admitted to 4E, under the services of OZZIE Almanza DO with a diagnosis of COVID 19 PNEUMONIA. Chief complaint is INCREASED SHORTNESS OF BREATH. Patient arrived via bed from ER. Monitor applied. Initial assessment completed. Vital signs taken and recorded. OZZIE ALMANZA DO notified of admission to the unit. Orders received. See assessment for past medical history, medications and allergies. Patient and/or family oriented to unit. [facility] visitation policy reviewed. Clothing/patient valuable form completed. CHERY WHITTINGTON
--- NOTE | 2020-02-28 13:34 | NUR ---
DR DOVER'S OFFICE NOTIFIED OF NEW CONSULT FOR COVID 19.
--- NOTE | 2020-02-28 15:45 | NUR ---
PATIENT ADAMANTLY REFUSED BI-PAP AT THIS TIME. PULSE OX 99% ON 8 L/M HIGH FLOW.
[2020-02-29] VITALS: BP 122/65
--- NOTE | 2020-02-29 00:55 | NUR ---
PATIENT REFUSING BIPAP
[2020-02-29 06:48] LABS: HEMATOCRIT 25.1 % (37.0-47.0); LYMPH % 16.9 % (27.0-41.0); MEAN CELL VOLUME 92.3 fl (81.0-99.0); MEAN CORPUSCULAR HGB 27.6 pg (27.0-31.0); MEAN CORPUSCULAR HGB CONC 29.9 g/dl (33.0-37.0); MEAN PLATELET VOLUME 9.8 fl (9.6-12.3); MONO # 0.5 10*3/uL (0.1-1.0); MONO % 8.7 % (3.0-9.0); NEUT # 4.3 10*3/uL (2.3-7.9); NEUT % 74.1 % (47.0-73.0); PLATELET COUNT AUTOMATED 373 10*3/uL (130-400); RED BLOOD COUNT 2.72 10*6/uL (4.10-5.10); RED CELL DISTRI WIDTH 15.9 % (0-14.5); WHITE BLOOD COUNT 5.8 10*3/uL (4.8-10.8)
[2020-02-29 06:58] LABS: ALBUMIN 2.8 gm/dl (3.1-4.5); ALKALINE PHOSPHATASE 151 U/L (45-117); BUN 32 mg/dl (7-24); CHLORIDE 109 mmol/L (98-107); CPK 39 U/L (26-192); CREATININE 0.62 mg/dL (0.55-1.02); LDH 331 U/L (84-246); POTASSIUM 4.1 mmol/L (3.5-5.1); SGOT/AST 24 IU/L (3-35); SGPT/ALT 33 U/L (12-78); SODIUM 138 mmol/L (136-145); TOTAL PROTEIN 7.5 gm/dL (6.4-8.2)
[2020-02-29 08:00] VITALS: BP 108/64
[2020-02-29 08:31] LABS: ABG BASE EXCESS -2.5 mmol/L (-2.0-2.0); ARTERIAL BLOOD GAS PH 7.388 (7.35-7.45)
--- NOTE | 2020-02-29 08:50 | NUR ---
NOTIFIED DR PEPPER OF POSITIVE B/C FOR GRAM NEGATIVE BACILLI.
--- NOTE | 2020-02-29 09:08 | NUR ---
Call Center Consultant in to talk to patient. Patient states lives at home with sons. There are 3 steps in the home. Physician: [facility] Home health services: none Patient's level of ADLs: MODERATE ASSIST Patient has working utilities: all working DME: walker, wheelchair Follow-up physician's appointment after d/c: will be made by hospitalist nurse director upon discharge Does patient want to access PORTAL?: no Discharge plan discussed with patient by phone, she states she normally lives at home with her sons, she uses a walker for ambulation and requires minimal assistance with ADLs. she is currently at [facility] for half-way care and wants to return when discharged. case management will follow and make arrangements for patient to return. . DEREK JACKSON
[2020-02-29 12:00] VITALS: BP 132/62
[2020-02-29 16:00] VITALS: BP 123/70
[2020-02-29 20:00] VITALS: BP 122/65
[2020-03-01] VITALS: BP 147/76
--- NOTE | 2020-03-01 03:26 | NUR ---
CHART CHECK COMPLETE.
[2020-03-01 06:06] LABS: HEMATOCRIT 26.2 % (37.0-47.0); LYMPH # 0.9 10*3/uL (1.3-4.4); LYMPH % 15.3 % (27.0-41.0); MEAN CELL VOLUME 91.6 fl (81.0-99.0); MEAN CORPUSCULAR HGB 27.6 pg (27.0-31.0); MEAN CORPUSCULAR HGB CONC 30.2 g/dl (33.0-37.0); MEAN PLATELET VOLUME 9.5 fl (9.6-12.3); MONO # 0.4 10*3/uL (0.1-1.0); NEUT # 4.8 10*3/uL (2.3-7.9); NEUT % 77.2 % (47.0-73.0); PLATELET COUNT AUTOMATED 400 10*3/uL (130-400); RED BLOOD COUNT 2.86 10*6/uL (4.10-5.10); RED CELL DISTRI WIDTH 15.9 % (0-14.5); WHITE BLOOD COUNT 6.2 10*3/uL (4.8-10.8)
[2020-03-01 06:24] LABS: ALBUMIN 2.9 gm/dl (3.1-4.5); ALKALINE PHOSPHATASE 151 U/L (45-117); BUN 29 mg/dl (7-24); CHLORIDE 110 mmol/L (98-107); CREATININE 0.67 mg/dL (0.55-1.02); LDH 486 U/L (84-246); POTASSIUM 4.9 mmol/L (3.5-5.1); SGOT/AST 42 IU/L (3-35); SGPT/ALT 39 U/L (12-78); SODIUM 138 mmol/L (136-145); TOTAL PROTEIN 7.8 gm/dL (6.4-8.2)
[2020-03-01 06:25] LABS: CPK 64 U/L (26-192)
[2020-03-01 07:58] LABS: ABG BASE EXCESS -2.3 mmol/L (-2.0-2.0); ARTERIAL BLOOD GAS PH 7.437 (7.35-7.45)
[2020-03-01 08:00] VITALS: BP 133/69
[2020-03-01 12:00] VITALS: BP 123/60
[2020-03-01 16:00] VITALS: BP 133/64
[2020-03-01 20:00] VITALS: BP 147/75
--- NOTE | 2020-03-01 21:21 | NUR ---
PATIENT REFUSING TO TRY TO TAKE NASAL CANNULA OFF AND TRY BREATHING ON ROOM AIR. STATES SHE IS TOO SHORT OF BREATH. 100% ON 0.5 LITERS.
[2020-03-02] VITALS: BP 135/65
--- NOTE | 2020-03-02 03:42 | NUR ---
24 HR chart check completed.
--- NOTE | 2020-03-02 05:02 | NUR ---
PATIENT REFUSING TO MOVE FROM CHAIR TO BED FOR WEIGHT AT THIS TIME.
--- NOTE | 2020-03-02 06:38 | NUR ---
PATIENT SITTING IN CHAIR WITH NO NEEDS MADE. CHAIR LOCKED, CALL LIGHT IN REACH.
[2020-03-02 06:42] LABS: HEMATOCRIT 27.5 % (37.0-47.0); LYMPH # 1.3 10*3/uL (1.3-4.4); LYMPH % 25.3 % (27.0-41.0); MEAN CORPUSCULAR HGB 27.4 pg (27.0-31.0); MEAN CORPUSCULAR HGB CONC 29.8 g/dl (33.0-37.0); MEAN PLATELET VOLUME 9.7 fl (9.6-12.3); MONO # 0.6 10*3/uL (0.1-1.0); MONO % 11.9 % (3.0-9.0); NEUT # 3.2 10*3/uL (2.3-7.9); NEUT % 61.5 % (47.0-73.0); PLATELET COUNT AUTOMATED 395 10*3/uL (130-400); RED BLOOD COUNT 2.99 10*6/uL (4.10-5.10); RED CELL DISTRI WIDTH 15.9 % (0-14.5); WHITE BLOOD COUNT 5.2 10*3/uL (4.8-10.8)
[2020-03-02 07:21] LABS: ALBUMIN 2.8 gm/dl (3.1-4.5); ALKALINE PHOSPHATASE 140 U/L (45-117); BUN 28 mg/dl (7-24); CHLORIDE 108 mmol/L (98-107); CPK 31 U/L (26-192); CREATININE 0.65 mg/dL (0.55-1.02); LDH 342 U/L (84-246); POTASSIUM 4.3 mmol/L (3.5-5.1); SGOT/AST 18 IU/L (3-35); SGPT/ALT 35 U/L (12-78); SODIUM 137 mmol/L (136-145); TOTAL PROTEIN 7.3 gm/dL (6.4-8.2)
[2020-03-02 08:00] VITALS: BP 131/67
--- NOTE | 2020-03-02 08:00 | NUR ---
IN TO ROOM. PATIENT AWAKE, ALERT AND ORIENTED SITTING UP IN CHAIR. NO STATED COMPLAINTS AT THIS TIME. DENIES PAIN. RESPIRATIONS ARE EASY AND REGULAR ON 0.5L PT IS ABLE TO REPOSITION SELF AND IS ENCOURAGED TO DO SO. CHAIR IN LOCKED POSITION AND CALL LIGHT WITHIN REACH. WILL CONTINUE TO MONITOR.
[2020-03-02 08:54] LABS: ABG BASE EXCESS -1.6 mmol/L (-2.0-2.0); ARTERIAL BLOOD GAS PH 7.438 (7.35-7.45)
--- NOTE | 2020-03-02 09:00 | NUR ---
[facility] and will return when discharged. case management will follow
--- NOTE | 2020-03-02 09:05 | NUR ---
Patient [facility] in from [facility]. She was covid positive. Patient is ok to return to [facility] when medically stable. Clinicals faxed for review.
--- NOTE | 2020-03-02 10:22 | NUR ---
Nutritional Support Services Note: Pt noted with surgical wounds, s/p CABG. Appetite is good for meals. She receives an 1800calorie diet as ordered. Continued to encourage good po intake to promote healing. Monitor BS. Encouraged healthy eating. Will follow if needed. No other Nutrition intervention needed at this time. Zaida Sparks Rdn Ld
--- NOTE | 2020-03-02 11:14 | NUR ---
PAO2 77 ON AM ABG ON 0.5L NC, INCREASED TO 2L.
[2020-03-02 12:00] VITALS: BP 126/59
--- NOTE | 2020-03-02 15:52 | NUR ---
UPON CHECKING PT'S BLOOD GLUCOSE LEVEL, PATIENT WAS FOUND TO HAVE A BLOOD GLUCOSE OF 49. AMP OF D5 WAS ADMINISTERED AT THIS TIME. PT EXPERIENCING NO SYMPTOMS. WILL CONTINUE TO MONITOR.
[2020-03-02 16:00] VITALS: BP 134/62
[2020-03-02 20:00] VITALS: BP 112/37
[2020-03-03] VITALS: BP 131/60
[2020-03-03 06:17] LABS: BASO % 0.3 % (0.0-1.0); EOS # 0.1 10*3/uL (0.0-0.4); EOS % 1.3 % (1.0-4.0); HEMATOCRIT 28.6 % (37.0-47.0); LYMPH # 2.6 10*3/uL (1.3-4.4); MEAN CELL VOLUME 92.6 fl (81.0-99.0); MEAN CORPUSCULAR HGB 27.5 pg (27.0-31.0); MEAN CORPUSCULAR HGB CONC 29.7 g/dl (33.0-37.0); MEAN PLATELET VOLUME 9.7 fl (9.6-12.3); MONO # 0.5 10*3/uL (0.1-1.0); MONO % 7.7 % (3.0-9.0); NEUT # 3.4 10*3/uL (2.3-7.9); NEUT % 51.1 % (47.0-73.0); PLATELET COUNT AUTOMATED 423 10*3/uL (130-400); RED BLOOD COUNT 3.09 10*6/uL (4.10-5.10); RED CELL DISTRI WIDTH 16.2 % (0-14.5); WHITE BLOOD COUNT 6.7 10*3/uL (4.8-10.8)
[2020-03-03 06:28] LABS: ALBUMIN 2.6 gm/dl (3.1-4.5); ALKALINE PHOSPHATASE 139 U/L (45-117); BUN 28 mg/dl (7-24); CHLORIDE 111 mmol/L (98-107); CPK 23 U/L (26-192); CREATININE 0.56 mg/dL (0.55-1.02); LDH 316 U/L (84-246); POTASSIUM 4.5 mmol/L (3.5-5.1); SGOT/AST 17 IU/L (3-35); SGPT/ALT 28 U/L (12-78); SODIUM 139 mmol/L (136-145)
--- NOTE | 2020-03-03 06:45 | NUR ---
PATIENT GIVEN TWO JUICES FOR BLOOD SUGAR OF 75.
--- NOTE | 2020-03-03 06:46 | NUR ---
PATIENT REFUSING TO GET WEIGHED IN BED THIS MORNING.
[2020-03-03 08:00] VITALS: BP 126/64
[2020-03-03 08:27] LABS: ABG BASE EXCESS -1.2 mmol/L (-2.0-2.0); ARTERIAL BLOOD GAS PH 7.39 (7.35-7.45)
--- NOTE | 2020-03-03 11:37 | NUR ---
media planner is working with [facility] when patient is stable for discharge. [facility] for [facility] care home stay
[2020-03-03 12:00] VITALS: BP 125/58
--- NOTE | 2020-03-03 13:00 | NUR ---
Patient updated clinicals faxed to [facility] for review. Patient came in from but undecided at this if she can return. Facility stating they are calling family members to see if they are going to pay for patients bed hold or not. If unable to return, will discuss with patient another snf choice.
[2020-03-03 16:00] VITALS: BP 135/65
--- NOTE | 2020-03-03 17:19 | NUR ---
SPOKE TO PHYSICAL THERAPY AND DR. CAGLE. PATIENT NEEDS TO BE ON STERNAL PRECAUTINS AND USE A KNEE BRACE FOR HER KNEE.
[2020-03-03 20:00] VITALS: BP 120/71
--- NOTE | 2020-03-03 21:13 | NUR ---
WHEN ENTERING ROOM PATIENT STARTED YELLING AT THIS RN STATING "I HAVE BEEN HERE SINCE MONDAY AND NOT ONE PERSON HAS OFFERED ME A BATH!". DESPITE THIS RN ASKING THE PATIENT EVERY 1-2 HOURS THE LAST THREE NIGHTS IF THE PATIENT NEEDS ANYTHING AND SHE RESPONDS WITH "NO". THE PATIENT THEN CONTINUED TO YELL AT THIS RN. PATIENT IS ABLE TO WASH HERSELF UP, AND CONTINUED TO DENY ANY NEEDS. PATIENT WAS INFORMED THAT SOMEONE WILL BE IN SHORTLY TO HELP HER WASH UP.
--- NOTE | 2020-03-03 22:30 | NUR ---
PATIENT SET UP FOR BATH AT THIS TIME. PER RAMIREZ BALDERAS, PATIENT WASHED HERSELF, THE ONLY ASSISTANCE SHE NEEDED WAS WITH WASHING HER BACK.
[2020-03-04] VITALS: BP 120/71
[2020-03-04 06:32] LABS: BASO % 0.2 % (0.0-1.0); EOS % 0.3 % (1.0-4.0); HEMATOCRIT 27.4 % (37.0-47.0); LYMPH # 1.5 10*3/uL (1.3-4.4); LYMPH % 23.3 % (27.0-41.0); MEAN CELL VOLUME 91.6 fl (81.0-99.0); MEAN CORPUSCULAR HGB 27.1 pg (27.0-31.0); MEAN CORPUSCULAR HGB CONC 29.6 g/dl (33.0-37.0); MEAN PLATELET VOLUME 9.8 fl (9.6-12.3); MONO # 0.6 10*3/uL (0.1-1.0); MONO % 9.6 % (3.0-9.0); NEUT # 4.1 10*3/uL (2.3-7.9); NEUT % 64.7 % (47.0-73.0); PLATELET COUNT AUTOMATED 445 10*3/uL (130-400); RED BLOOD COUNT 2.99 10*6/uL (4.10-5.10); RED CELL DISTRI WIDTH 16.2 % (0-14.5); WHITE BLOOD COUNT 6.3 10*3/uL (4.8-10.8)
[2020-03-04 06:45] LABS: ALBUMIN 2.6 gm/dl (3.1-4.5); BUN 26 mg/dl (7-24); CHLORIDE 107 mmol/L (98-107); CREATININE 0.55 mg/dL (0.55-1.02); LDH 337 U/L (84-246); POTASSIUM 4.1 mmol/L (3.5-5.1); SGOT/AST 17 IU/L (3-35); SGPT/ALT 25 U/L (12-78); SODIUM 138 mmol/L (136-145)
[2020-03-04 06:46] LABS: ALKALINE PHOSPHATASE 138 U/L (45-117); CPK 25 U/L (26-192)
[2020-03-04 08:00] VITALS: BP 138/62
[2020-03-04 08:50] LABS: ABG BASE EXCESS -0.2 mmol/L (-2.0-2.0); ARTERIAL BLOOD GAS PH 7.441 (7.35-7.45)
--- NOTE | 2020-03-04 08:59 | NUR ---
FRANCHISE SALES MANAGER FAXED UPDATES TO [facility] FOR REVIEW. AWAITING CONFIRMATION ON PATIENTS ABILITY TO RETURN TO RS.
[2020-03-04 12:00] VITALS: BP 119/55
--- NOTE | 2020-03-04 14:57 | NUR ---
PHYSICAL THERAPY Patient presented to therapy in sitting in bedside chair with bedside commode in front of her and 1 liters of spO2. Patient gives informed consnet for treatment. Patient performed STS <> bedside chair with SBA. Patient transferred SPT onto the commode in front of her chair with SBA. Patient still does not have an immobilizer for the L LE. Patient then transferred back to the bedside commode with SBA. Patient sat in bedside chair and performed sitting RIGHT LE ther ex 2 x 10 reps each in all planes of movement for strengthening the R LE. Patient was 1:1 with this HOUSEKEEPING SUPERVISOR HOTEL for 16 minutes total. JOHN HESS HOUSEKEEPING SUPERVISOR HOTEL
--- NOTE | 2020-03-04 15:29 | NUR ---
ICE CREAM VAULT WORKER SPOKE WITH INA PATIENT IS ABLE TO RETURN TO WITH PENICILLIN.
[2020-03-04 16:00] VITALS: BP 139/89
[2020-03-04 20:00] VITALS: BP 130/71
[2020-03-05] VITALS: BP 137/75
--- NOTE | 2020-03-05 01:35 | NUR ---
ESTELA CACERES GIVEN FOR PT COMPLAINTS OF NONPRODUCTIVE HACKY DRY COUGH. CALL LIGHT WITHIN REACH, WILL MONITOR
--- NOTE | 2020-03-05 02:02 | NUR ---
PATIENT COMPLAINING OF SHORTNESS OF BREATH. APPEARS ANXIOUS. PER DR. PONCE NOTE, SHE WAS PRESCRIBED XANAX. PATIENTS PULSE OX 99% ON 1L OF OXYGEN. PRN XANAX GIVEN TO ASSIST WITH ANXIETY AND SHORTNESS OF BREATH. CALL LIGHT WITHIN REACH, WILL MONITOR
--- NOTE | 2020-03-05 03:00 | NUR ---
PER PT SHE STATED THAT THE PILL HELPED AND SHE CAN BREATH MUCH BETTER.
--- NOTE | 2020-03-05 03:31 | NUR ---
24 HR chart check completed.
[2020-03-05 06:27] LABS: BASO % 0.1 % (0.0-1.0); EOS % 0.1 % (1.0-4.0); HEMATOCRIT 28.4 % (37.0-47.0); LYMPH # 1.8 10*3/uL (1.3-4.4); LYMPH % 25.2 % (27.0-41.0); MEAN CORPUSCULAR HGB 27.2 pg (27.0-31.0); MEAN CORPUSCULAR HGB CONC 29.9 g/dl (33.0-37.0); MEAN PLATELET VOLUME 9.8 fl (9.6-12.3); MONO # 0.7 10*3/uL (0.1-1.0); MONO % 9.1 % (3.0-9.0); NEUT # 4.5 10*3/uL (2.3-7.9); NEUT % 63.7 % (47.0-73.0); PLATELET COUNT AUTOMATED 457 10*3/uL (130-400); RED BLOOD COUNT 3.12 10*6/uL (4.10-5.10); RED CELL DISTRI WIDTH 16.1 % (0-14.5); WHITE BLOOD COUNT 7.1 10*3/uL (4.8-10.8)
[2020-03-05 07:00] LABS: ALKALINE PHOSPHATASE 141 U/L (45-117); BUN 23 mg/dl (7-24); CHLORIDE 105 mmol/L (98-107); CPK 28 U/L (26-192); CREATININE 0.55 mg/dL (0.55-1.02); LDH 391 U/L (84-246); POTASSIUM 4.1 mmol/L (3.5-5.1); SGOT/AST 20 IU/L (3-35); SGPT/ALT 30 U/L (12-78); SODIUM 136 mmol/L (136-145); TOTAL PROTEIN 7.1 gm/dL (6.4-8.2)
[2020-03-05 08:00] VITALS: BP 145/90
--- NOTE | 2020-03-05 08:44 | NUR ---
PATIENT MEDICATION WITH XANAX AT THIS TIME FOR COMPLAINTS OF ANXIETY. WILL MONITOR FOR EFFECTIVENESS.
--- NOTE | 2020-03-05 08:54 | NUR ---
PHYSICAL THERAPY Patient presented to therapy in sitting in bedside chair with LEs elevated and RN Bianca with the patient in room. Patient reports a little SOB, Patient gives informed consent for treatment. Patient was identified by name and on wristband. Patient has no pain in the L LE. Patient performed STS < > bedside chair with CGA - SBA. Patient performed R LE ther ex in sitting in all planes of movement for strengthening the LEs including LAQs, marches, heel/toe raises, hip abduction, and hip adduction with pillow. Patient performed STSs out of bedside chair x 3 reps with SBA. Patient's O2 SAT was recorded as 99% the entire therapy session. Patient was left in bedside chair with 1 liter of spO2, call light within reach and and LEs in low position. Patient was 1:1 with his ENVIRONMENTAL PROTECTION GEOLOGIST for 17 minutes total, PPE donned and doffed as per COVID 19 [employer] PROT[employer]OL. JOHN HESS ENVIRONMENTAL PROTECTION GEOLOGIST
--- NOTE | 2020-03-05 09:00 | NUR ---
patient is skilled at rehab suites and will return when discharged. patient will be discharged today or tomorrow, case management will follow
--- NOTE | 2020-03-05 09:44 | NUR ---
PER PATIENT, PRN MEDICATION HAS BEEN EFFECTIVE - MUCH MORE RELAXED AT THIS TIME.
[2020-03-05 12:00] VITALS: BP 134/66
[2020-03-05] MEDS ORDERED: AUGMENTIN 875875 MG PO (13:45)
[2020-03-05] MEDS ORDERED: [UNRECOGNIZED DRUG - CODE] IJ (13:45)
--- NOTE | 2020-03-05 14:03 | NUR ---
PICTURE PAINTER NOTIFIED OF PATIENT DISCHARGE. PICTURE PAINTER SPOKE WITH PATIENTS JENNI RAMOS. PICTURE PAINTER ARRANGED FOR [facility] TO TRANSPORT THE PATIENT AT 4:30PM. PICTURE PAINTER NOTIFIED LEI ARBOLEDA, AND CALLED AND LEFT VOICE MESSAGE FOR NOK. PICTURE PAINTER TO FAX DISCHARGE ORDERS AND DEMOGRAPHICS TO [facility].
--- NOTE | 2020-03-05 16:31 | NUR ---
REPORT GIVEN TO JENNI DÍAZ AT REHAB SU[facility].
--- NOTE | 2020-03-05 17:40 | NUR ---
PATIENT PICKED UP BY [facility] AND TRANSPORTED TO [facility] FACILITY FOR CONTINUATION IN CARE. IV SITE REMAINS IN PLACE FOR CONTINUATION IN IV'S. MONITOR REMOVED. REPORT BEEN GIVEN.. PT TAKEN OFF FLOOR VIA BED.
--- NOTE | 2020-03-05 17:42 | NUR ---
PATIENT PICKED UP BY [facility] TO BE TRANSPORTED TO [facility] FOR CONTINUATION IN HOSPICE CARE. SCRIPTS SENT WITH ENVELOPE FOR NEW MEDICATIONS. HEPLOCK DISCONTINUED. WILL CALL AND GIVE NURSE TO PIETRO REPORT.
--- NOTE | 2020-03-06 07:40 | NUR ---
PHYSICAL THERAPY CO-SIGN I approve of the Physical Therapy notes written above. Leonora Moody PT
== END 2020-03-05 18:16 | disposition other institution (70) | DRG 871 ==
LOC: ED 23:42 → EDHOLD 02-28 01:01 → 4E 02-28 01:01
PROVIDERS: Internal Medicine; Internal Medicine Critical Care Medicine; ADMIT Internal Medicine; ATTEND Internal Medicine
PROC: 5A0935A Assistance with Respiratory Ventilation, Less than 24 Consecutive Hours, High Flow/Velocity Cannula (ICD-10-PCS; principal; 2020-02-28)
PROC: 5A09357 Assistance with Respiratory Ventilation, Less than 24 Consecutive Hours, Continuous Positive Airway Pressure (ICD-10-PCS; 2020-02-28)
PROC: XW033E5 Introduction of Remdesivir Anti-infective into Peripheral Vein, Percutaneous Approach, New Technology Group 5 (ICD-10-PCS; 2020-02-28)
PROC: 5A0935A Assistance with Respiratory Ventilation, Less than 24 Consecutive Hours, High Flow/Velocity Cannula (ICD-10-PCS; 2020-02-29)
DX: A41.50 Gram-negative sepsis, unspecified (principal); R65.21 Severe sepsis with septic shock; U07.1 COVID-19; J96.01 Acute respiratory failure with hypoxia; J12.89 Other viral pneumonia; I33.0 Acute and subacute infective endocarditis; E44.0 Moderate protein-calorie malnutrition; N17.9 Acute kidney failure, unspecified; D68.59 Other primary thrombophilia; R79.82 Elevated C-reactive protein (CRP); Z96.653 Presence of artificial knee joint, bilateral; D64.9 Anemia, unspecified; E11.65 Type 2 diabetes mellitus with hyperglycemia; E78.5 Hyperlipidemia, unspecified; E66.01 Morbid (severe) obesity due to excess calories; N18.30 Chronic kidney disease, stage 3 unspecified; R74.01 Elevation of levels of liver transaminase levels; E66.3 Overweight; I12.9 Hypertensive chronic kidney disease with stage 1 through stage 4 chronic kidney disease, or unspecified chronic kidney disease; D72.810 Lymphocytopenia; E55.9 Vitamin D deficiency, unspecified; D47.3 Essential (hemorrhagic) thrombocythemia; Z98.51 Tubal ligation status; Z85.3 Personal history of malignant neoplasm of breast; Z79.4 Long term (current) use of insulin; Z68.29 Body mass index [BMI] 29.0-29.9, adult; Z79.899 Other long term (current) drug therapy

== ENCOUNTER 2020-04-01 04:31 | Inpatient (IN) | payer MEDICARE ==
[~2020-04-01] VITALS: Ht 160 cm; Wt 87.5 kg
[~2020-04-01 04:31] MED LIST changes: +AMIODARONE HCL400 MG PO; +ASPIRIN ADULT L81 M2 PO; +AUGMENTIN 875875 MG PO; +DAKIN'S473 ML T; +DECADRON6 M1 PO; +EMERGEN-C 500500 MG PO; +GLUCOTROL10 MG PO; +K-TAB20 MEQ PO; +LASIX40 MG PO; +LIPITOR20 MG PO; +PAIN RELIEVER650 MG PO; +SENNA PLUS 8.61 EACH PO; +VITAMIN D250 MC1 PO; +ZINC SULFATE220 M2 PO; +[UNRECOGNIZED DRUG - CODE] IJ; +[UNRECOGNIZED DRUG - OTHER] PO
[2020-04-01 04:35] VITALS: BP 139/89
[2020-04-01 05:42] LABS: ALBUMIN 2.8 gm/dl (3.1-4.5); ALKALINE PHOSPHATASE 150 U/L (45-117); BUN 17 mg/dl (7-24); CHLORIDE 113 mmol/L (98-107); POTASSIUM 3.6 mmol/L (3.5-5.1); SGOT/AST 22 IU/L (3-35); SGPT/ALT 42 U/L (12-78); SODIUM 142 mmol/L (136-145); TOTAL PROTEIN 6.6 gm/dL (6.4-8.2)
[2020-04-01 05:44] LABS: TROPONIN I < 0.015 ng/ml (<0.045)
[2020-04-01 06:01] LABS: BASO % 0.3 % (0.0-1.0); EOS % 1.1 % (1.0-4.0); HEMATOCRIT 32.3 % (37.0-47.0); LYMPH # 0.6 10*3/uL (1.3-4.4); LYMPH % 17.7 % (27.0-41.0); MEAN CELL VOLUME 91.2 fl (81.0-99.0); MEAN CORPUSCULAR HGB 26.8 pg (27.0-31.0); MEAN CORPUSCULAR HGB CONC 29.4 g/dl (33.0-37.0); MEAN PLATELET VOLUME 11.1 fl (9.6-12.3); MONO # 0.5 10*3/uL (0.1-1.0); MONO % 14.7 % (3.0-9.0); NEUT # 2.4 10*3/uL (2.3-7.9); NEUT % 65.1 % (47.0-73.0); PLATELET COUNT AUTOMATED 326 10*3/uL (130-400); RED BLOOD COUNT 3.54 10*6/uL (4.10-5.10); RED CELL DISTRI WIDTH 16.4 % (0-14.5); WHITE BLOOD COUNT 3.6 10*3/uL (4.8-10.8)
[2020-04-01 06:18] LABS: ACT PARTIAL THROMBO TIME 28.9 SECONDS (20.0-32.1); INTERNATIONAL NORM RATIO 1.3 (2.0-3.5)
--- NOTE | 2020-04-01 07:18 | NUR ---
REPORT FROM JADA ARTEAGA AT THIS TIME.
--- NOTE | 2020-04-01 07:45 | NUR ---
HELPED PATIENT ONTO BEDSIDE COMMODE AT THIS TIME.
[2020-04-01 07:48] VITALS: BP 153/87
[2020-04-01 10:13] VITALS: BP 131/64
[2020-04-01] MEDS ORDERED: CEPHALEXIN500 M1 PO (13:17)
[2020-04-01] MEDS ORDERED: WARFARIN SODIUM5 MG PO (13:18)
[2020-04-01] MEDS ORDERED: LANTUS SOL100 UNIT/1 SC (13:19)
[2020-04-01] MEDS ORDERED: INSULIN LI100 UNIT/1 SQ (13:20)
--- NOTE | 2020-04-01 13:39 | NUR ---
PATIENT TO ULTRASOUND AT THIS TIME.
--- NOTE | 2020-04-01 13:40 | NUR ---
PATIENT BGL 256. COVERED WITH 6 UNITS OF INSULIN PER EMAR.
--- NOTE | 2020-04-01 14:43 | NUR ---
CONSULT FOR DR JESUS JENSEN.
--- NOTE | 2020-04-01 15:27 | NUR ---
PATIENT ASSISTED TO BEDSIDE.
[2020-04-01 16:00] VITALS: BP 129/73
--- NOTE | 2020-04-01 18:30 | NUR ---
REPORT GIVEN TO DALE ARTEAGA AT THIS TIME. MEDICATIONS WERE BEING CHANGED IN EMAR WHEN ATTEMPTING TO GIVE PATIENTS 6PM MEDS. UNSURE WHAT TO BE GIVEN. MEDICATIONS TAKEN TO FLOOR WITH THIS NURSE FOR PATIENT.
[2020-04-01 18:45] VITALS: BP 146/79
--- NOTE | 2020-04-01 18:45 | NUR ---
A 69, admitted to 5E, under the services of ALLISON David DO with a diagnosis of CHF EXACERBATION. Chief complaint is SHORTNESS OF BREATH. Patient arrived via bed from ER. Monitor applied. Initial assessment completed. Vital signs taken and recorded. ALLISON DAVID DO notified of admission to the unit. Orders received. See assessment for past medical history, medications and allergies. Patient and/or family oriented to unit. [facility] visitation policy reviewed. Clothing/patient valuable form completed. CHERY WHITTINGTON
--- NOTE | 2020-04-01 18:50 | NUR ---
PT ARRIVED TO FLOOR WITH BLE DRESSINGS PLACED BY PHYSICIAN PER ED RN, YAMILETH MOHAN. PHOTOS TAKEN BUT UNABLE TO DO MEASUREMENTS.DRESSINGS ARE DRY AND INTACT AT [facility].
[2020-04-01 20:00] VITALS: BP 129/73
--- NOTE | 2020-04-01 20:13 | NUR ---
ASSUMED CARE OF PATIENT. PATIENT IS RESTING IN BED WITH EASY AND REGULAR RESPERS. ASSESSMENT IS COMPLETE WITH NO C/O OR S/S OF DISTRESS NOTED AT THIS TIME. 1800 MEDICATIONS GIVEN. PATIENT ASSISTED TO BEDESIDE COMMODE. MAXI PADS PROVIDED PER PATIENT REQUEST. CALL LIGHT IS WITHIN REACH, SEE INTERVENTIONS.
[2020-04-02] VITALS: BP 119/55
--- NOTE | 2020-04-02 00:43 | NUR ---
PATIENT SAID SHE FEELS LIKE SHE CAN'T BREATHPULSE OX 100% ON 2L NC PATIENT SPEAKING IN SENTENCES RESP.HERE ON FLOOR AND PATIENT CHECKED ALSO BY THEM. PATIENT SAID EVERY SINCE I HAD COVID I FEEL LIKE I CAN'T CATCH MY BREATH. PATIENT GIVEN RESTORIL TO HELP CALM AND RELAX PATIENT. BREATHING TECHNIQUES REVIEWED. INCREASE O2 TO 3L NC. FOR COMFORT.
--- NOTE | 2020-04-02 01:45 | NUR ---
RESTORIL NOT EFFECTIVE YET. PATIENT STILL AWAKE.
--- NOTE | 2020-04-02 04:00 | NUR ---
TYLENOL GIVEN PER ORDER FOR HEADACHE RATED "5-6" SEE MAR .
--- NOTE | 2020-04-02 04:50 | NUR ---
24 HR chart check completed.
[2020-04-02 06:18] LABS: BASO % 0.5 % (0.0-1.0); EOS # 0.1 10*3/uL (0.0-0.4); HEMATOCRIT 28.2 % (37.0-47.0); LYMPH # 1.3 10*3/uL (1.3-4.4); LYMPH % 31.7 % (27.0-41.0); MEAN CELL VOLUME 90.4 fl (81.0-99.0); MEAN CORPUSCULAR HGB 26.9 pg (27.0-31.0); MEAN CORPUSCULAR HGB CONC 29.8 g/dl (33.0-37.0); MEAN PLATELET VOLUME 10.3 fl (9.6-12.3); MONO # 0.6 10*3/uL (0.1-1.0); MONO % 15.7 % (3.0-9.0); NEUT % 49.6 % (47.0-73.0); PLATELET COUNT AUTOMATED 311 10*3/uL (130-400); RED BLOOD COUNT 3.12 10*6/uL (4.10-5.10); RED CELL DISTRI WIDTH 16.4 % (0-14.5); WHITE BLOOD COUNT 3.9 10*3/uL (4.8-10.8)
[2020-04-02 06:36] LABS: ALBUMIN 2.4 gm/dl (3.1-4.5); ALKALINE PHOSPHATASE 130 U/L (45-117); BUN 18 mg/dl (7-24); CHLORIDE 108 mmol/L (98-107); CREATININE 0.67 mg/dL (0.55-1.02); POTASSIUM 3.1 mmol/L (3.5-5.1); SGOT/AST 12 IU/L (3-35); SGPT/ALT 29 U/L (12-78); SODIUM 141 mmol/L (136-145); TOTAL PROTEIN 5.7 gm/dL (6.4-8.2)
[2020-04-02 06:46] LABS: INTERNATIONAL NORM RATIO 1.2 (2.0-3.5)
[2020-04-02 08:00] VITALS: BP 113/63
--- NOTE | 2020-04-02 08:30 | NUR ---
Darklight Inspector in to talk to patient. Patient states lives at Home with family There are No steps in the home. Physician: Fabrice Calvo [facility]: [facility] [place] Home health services: None at this time Patient's level of ADLs: Independent, still works and Drives Patient has working utilities: Yes, All are working DME: none Follow-up physician's appointment after d/c: Per Hospitalist Nurse Director Does patient want to access PORTAL?: No Discharge plan discussed with Pt. Pt. states that she is Independent in all ADL's Lives with her Family. Has No Home Needs. Still Works and Drives. Discharge Plan at this time is for Pt. to return home with Family, no needs. TIFFANY FLAHERTY LPN
--- NOTE | 2020-04-02 11:33 | NUR ---
Nutritional Support Services Note: Appetite is good for meals, she is eating 100% of all meals. Regular diet as ordered. Cellulitis noted to lower extremities. No other nutrition intervention needed at this time. Will follow as needed. Zaida Sparks Rdn LD
--- NOTE | 2020-04-02 11:46 | NUR ---
PHYSICAL THERAPY Physical Therapy evaluation completed on 5E with full evaluation to follow. Low complexity skilled PT evaluation per chart review and evaluation, [id number]. Recommend physical therapy per plan of care and Home Health services upon discharge. Thank you for this referral. Meena Huntley,PT,DPT
[2020-04-02 12:00] VITALS: BP 117/57
--- NOTE | 2020-04-02 12:50 | NUR ---
Occupational Therapy evaluation completed on with full evaluation to follow. Recommend occupational therapy per plan of care and Home with HH upon discharge. Thank you for this referral. Dannielle Bull OTR/L
[2020-04-02 16:00] VITALS: BP 119/73
[2020-04-02 20:00] VITALS: BP 119/69
[2020-04-03] VITALS: BP 114/65
--- NOTE | 2020-04-03 04:03 | NUR ---
NORCO GIVEN PER ORDER FOR LEFT LOWER LEG PAIN RATED "7" SEE MAR. TOES ARE WARM, CASSIDY WELL, NO NUMBNESS OR TINGLING AND PATIENT MOVES TOES.
--- NOTE | 2020-04-03 04:18 | NUR ---
24 HR chart check completed.
--- NOTE | 2020-04-03 05:00 | NUR ---
NORCO EFFECTIVE FOR PAIN IN LEFT LEG PER PT.
[2020-04-03 06:29] LABS: BASO % 0.5 % (0.0-1.0); EOS # 0.1 10*3/uL (0.0-0.4); EOS % 1.4 % (1.0-4.0); HEMATOCRIT 28.7 % (37.0-47.0); LYMPH # 1.4 10*3/uL (1.3-4.4); LYMPH % 32.9 % (27.0-41.0); MEAN CELL VOLUME 91.7 fl (81.0-99.0); MEAN CORPUSCULAR HGB 27.5 pg (27.0-31.0); MEAN PLATELET VOLUME 10.8 fl (9.6-12.3); MONO # 0.6 10*3/uL (0.1-1.0); MONO % 14.5 % (3.0-9.0); NEUT # 2.1 10*3/uL (2.3-7.9); NEUT % 50.2 % (47.0-73.0); PLATELET COUNT AUTOMATED 337 10*3/uL (130-400); RED BLOOD COUNT 3.13 10*6/uL (4.10-5.10); RED CELL DISTRI WIDTH 16.5 % (0-14.5); WHITE BLOOD COUNT 4.2 10*3/uL (4.8-10.8)
[2020-04-03 06:37] LABS: BUN 22 mg/dl (7-24); CHLORIDE 106 mmol/L (98-107); CREATININE 0.75 mg/dL (0.55-1.02); POTASSIUM 3.4 mmol/L (3.5-5.1); SODIUM 139 mmol/L (136-145)
[2020-04-03 06:40] LABS: INTERNATIONAL NORM RATIO 1.3 (2.0-3.5)
[2020-04-03 08:00] VITALS: BP 112/54
--- NOTE | 2020-04-03 09:35 | NUR ---
PHYSICAL THERAPY Patient seen this am 1:1 for therapy visit and was sitting up in bedside chair upon therapist arrival. Patient identified by name / and presented with continuos O2-3L via CT. Patient recorded resting SpO2 98%, HR 85 bpm prior to completing several sit to stand transfers, use of walker standing support, SBA x 1. Patient tolerated approx 2 minutes static stand on first attempt and approx 1 minute second trial. Patient also ambulated 15'x 1, walker, CGA, demonstrating very slow, cautious gait pattern, no c/o's pain and only mild B LE edema. Patient c/o of fatigue upon return to bedside chair, recording SpO2 98%, HR 86 bpm. Patient educated on energy conservation techniques to improve standing tolerance / performance and remained in bedside chair with call light, tray table, telephone. Will continue per POC as tolerated, total treatment time 17 minutes. Hemant Mathis, STRAIGHTENER HAND
--- NOTE | 2020-04-03 11:42 | NUR ---
DR MARTINO ROUNDED AND SEEN PT.
[2020-04-03 12:00] VITALS: BP 108/52
[2020-04-03 16:00] VITALS: BP 111/61
--- NOTE | 2020-04-03 16:37 | NUR ---
DR COBIAN ROUNDED. BGM OBTAINED PER HIS REQUEST. BLOOD GLUCOSE 65 AT THIS TIME.AWAITING ORDERS.
--- NOTE | 2020-04-03 18:41 | NUR ---
IV started right forearm with #22 protective cath after 1 attempts. Site prepped with Chloroprep. Sterile dressing applied. Patient tolerated procedure well. CHERY WHITTINGTON
[2020-04-03 20:00] VITALS: BP 120/62
--- NOTE | 2020-04-03 23:02 | NUR ---
NORCO GIVEN PER ORDER FOR PAIN IN LOWER LEGS RATED "8". SEE MAR.
[2020-04-04] VITALS: BP 109/51
--- NOTE | 2020-04-04 | NUR ---
NORCO EFFECTIVE FOR LOWER LEG PAIN PER PT.
--- NOTE | 2020-04-04 02:27 | NUR ---
24 HR chart check completed.
--- NOTE | 2020-04-04 04:27 | NUR ---
PT GIVEN PRN NORCO PER REQUEST FOR LOWER EXT PAIN, SEE EMAR.
--- NOTE | 2020-04-04 05:27 | NUR ---
PRN NORCO EFFECTIVE PER PT.
[2020-04-04 07:26] LABS: INTERNATIONAL NORM RATIO 1.3 (2.0-3.5)
[2020-04-04 08:00] VITALS: BP 110/64
--- NOTE | 2020-04-04 11:50 | NUR ---
HOME O2 ASSESSMENT: PRE BP: 110/64, HR 84, RR 18, PULSE OX 95% ON ROOM AIR AT REST. AMBULATED PATIENT A COMPLETE LAP IN HALLWAY WITH ASSIST OF A WALKER. PULSE OX 92%-96% ON ROOM AIR THROUGHOUT AMBULATION. POST BP: 117/62, HR 94, RR 18, PULSE OX 93% ON ROOM AIR AT REST. PATIENT DOES NOT QUALIFY FOR HOME O2, FAIZA MELENDEZ & RN NOTIFIED.
[2020-04-04 12:00] VITALS: BP 106/54; BP 117/62
[2020-04-04 12:28] LABS: BASO % 0.5 % (0.0-1.0); EOS # 0.1 10*3/uL (0.0-0.4); EOS % 1.3 % (1.0-4.0); HEMATOCRIT 31.7 % (37.0-47.0); LYMPH # 0.9 10*3/uL (1.3-4.4); LYMPH % 24.5 % (27.0-41.0); MEAN CELL VOLUME 89.8 fl (81.0-99.0); MEAN CORPUSCULAR HGB 26.6 pg (27.0-31.0); MEAN CORPUSCULAR HGB CONC 29.7 g/dl (33.0-37.0); MEAN PLATELET VOLUME 9.9 fl (9.6-12.3); MONO # 0.5 10*3/uL (0.1-1.0); MONO % 12.5 % (3.0-9.0); NEUT # 2.3 10*3/uL (2.3-7.9); NEUT % 60.9 % (47.0-73.0); PLATELET COUNT AUTOMATED 389 10*3/uL (130-400); RED BLOOD COUNT 3.53 10*6/uL (4.10-5.10); RED CELL DISTRI WIDTH 15.9 % (0-14.5); WHITE BLOOD COUNT 3.8 10*3/uL (4.8-10.8)
[2020-04-04 20:00] VITALS: BP 112/68
[2020-04-05] VITALS: BP 126/61
[2020-04-05 06:46] LABS: BASO % 0.3 % (0.0-1.0); HEMATOCRIT 30.2 % (37.0-47.0); LYMPH # 1.1 10*3/uL (1.3-4.4); LYMPH % 26.8 % (27.0-41.0); MEAN CELL VOLUME 90.1 fl (81.0-99.0); MEAN CORPUSCULAR HGB 27.2 pg (27.0-31.0); MEAN CORPUSCULAR HGB CONC 30.1 g/dl (33.0-37.0); MEAN PLATELET VOLUME 10.4 fl (9.6-12.3); MONO # 0.6 10*3/uL (0.1-1.0); MONO % 14.5 % (3.0-9.0); NEUT # 2.3 10*3/uL (2.3-7.9); NEUT % 56.9 % (47.0-73.0); PLATELET COUNT AUTOMATED 373 10*3/uL (130-400); RED BLOOD COUNT 3.35 10*6/uL (4.10-5.10); RED CELL DISTRI WIDTH 15.9 % (0-14.5)
[2020-04-05 07:06] LABS: ALBUMIN 2.7 gm/dl (3.1-4.5); BUN 21 mg/dl (7-24); CHLORIDE 102 mmol/L (98-107); CREATININE 0.66 mg/dL (0.55-1.02); POTASSIUM 3.9 mmol/L (3.5-5.1); SGOT/AST 17 IU/L (3-35); SGPT/ALT 25 U/L (12-78); SODIUM 138 mmol/L (136-145); TOTAL PROTEIN 6.2 gm/dL (6.4-8.2)
[2020-04-05 07:07] LABS: ALKALINE PHOSPHATASE 130 U/L (45-117)
[2020-04-05 08:00] VITALS: BP 100/49
[2020-04-05 09:31] LABS: INTERNATIONAL NORM RATIO 1.3 (2.0-3.5)
[2020-04-05] MEDS ORDERED: Coumadin7.5 MG PO (09:49)
[2020-04-05] MEDS ORDERED: ENOXAPARIN100 MG/1 M SC (09:49)
[2020-04-05] MEDS ORDERED: LASIX40 MG PO (09:56)
[2020-04-05] MEDS ORDERED: KLOR-CON M2020 ME1 PO (09:57)
--- NOTE | 2020-04-05 11:53 | NUR ---
PT EDUCATED ON LOVENOX INJECTION AT THIS TIME AND PROVIDED WITH 1800 DOSE FOR HOME ADMINISISTRATION TONIGHT. PT ALSO MEDICATED WITH COUMADIN DOSE SHE IS ANBLE TO FILL HER PRESCRIPTION UNTIL TOMORROW.
--- NOTE | 2020-04-05 13:15 | NUR ---
DISCHARGE INSTRUCTIONS REVIEWED INCLUDING ORDERS FOR LAB WORK AND PICKING UP HER PRESCRIPTIONS TOMORROW. HEPLOCK REMOVED. PT TRANSPORTED OFF THE FLOOR VIA WHEELCHAIR TO PRIVATE CAR.
--- NOTE | 2020-04-06 07:56 | NUR ---
PHYSICAL THERAPY CO-SIGN I approve of the Physical Therapy notes written above. DELANO LOZANO PT, DPT
== END 2020-04-05 13:15 | disposition home or self-care (01) | DRG 291 ==
LOC: ED 04:31 → EDHOLD 06:33 → 5E 18:19
PROVIDERS: Emergency Medicine; Family Medicine; Hospitalist; Podiatrist Foot & Ankle Surgery; Registered Nurse; ADMIT Student in an Organized Health Care Education/Training Program; ATTEND Student in an Organized Health Care Education/Training Program
DX: I13.0 Hypertensive heart and chronic kidney disease with heart failure and stage 1 through stage 4 chronic kidney disease, or unspecified chronic kidney disease (principal); I50.33 Acute on chronic diastolic (congestive) heart failure; E43 Unspecified severe protein-calorie malnutrition; L97.429 Non-pressure chronic ulcer of left heel and midfoot with unspecified severity; L03.116 Cellulitis of left lower limb; I76 Septic arterial embolism; L03.115 Cellulitis of right lower limb; Z68.35 Body mass index [BMI] 35.0-35.9, adult; Z20.822 Contact with and (suspected) exposure to COVID-19; E11.621 Type 2 diabetes mellitus with foot ulcer; E11.42 Type 2 diabetes mellitus with diabetic polyneuropathy; N18.31 Chronic kidney disease, stage 3a; E11.22 Type 2 diabetes mellitus with diabetic chronic kidney disease; D64.9 Anemia, unspecified; E78.2 Mixed hyperlipidemia; Z96.653 Presence of artificial knee joint, bilateral; E55.9 Vitamin D deficiency, unspecified; Z95.2 Presence of prosthetic heart valve; Z79.01 Long term (current) use of anticoagulants; Z79.4 Long term (current) use of insulin; Z85.3 Personal history of malignant neoplasm of breast; Z98.51 Tubal ligation status; Z79.899 Other long term (current) drug therapy; Z87.891 Personal history of nicotine dependence

== ENCOUNTER → 2020-04-06 | Outpatient (CLI) | payer MEDICARE ==
[~2020-04-06] MED LIST changes: +CEPHALEXIN500 M1 PO; +Coumadin7.5 MG PO; +ENOXAPARIN100 MG/1 M SC; +INSULIN LI100 UNIT/1 SQ; +KLOR-CON M2020 ME1 PO; +WARFARIN SODIUM5 MG PO
[2020-04-06 17:11] LABS: INTERNATIONAL NORM RATIO 2.1 (2.0-3.5)
== END | disposition home or self-care (01) ==
LOC: LAB 16:44
PROVIDERS: ATTEND Registered Nurse
DX: Z95.2 Presence of prosthetic heart valve (principal)

== ENCOUNTER → 2020-04-08 | Outpatient (CLI) | payer MEDICARE ==
[2020-04-08 15:46] LABS: INTERNATIONAL NORM RATIO 3.1 (2.0-3.5)
== END | disposition home or self-care (01) ==
LOC: LAB 15:16
PROVIDERS: ATTEND Registered Nurse
DX: Z95.2 Presence of prosthetic heart valve (principal)

== ENCOUNTER → 2020-04-10 | Outpatient (CLI) | payer MEDICARE ==
[2020-04-10 13:47] LABS: INTERNATIONAL NORM RATIO 1.8 (2.0-3.5)
== END | disposition home or self-care (01) ==
LOC: LAB 12:42
PROVIDERS: ATTEND Registered Nurse
DX: Z95.2 Presence of prosthetic heart valve (principal)

== ENCOUNTER → 2020-06-22 | Outpatient (CLI) | payer MEDICARE | END | disposition home or self-care (01) | LOC: CARD 11:30 | PROVIDERS: ATTEND Internal Medicine Cardiovascular Disease | DX: I08.0 Rheumatic disorders of both mitral and aortic valves (principal) ==

== ENCOUNTER 2020-07-31 22:13 | Inpatient (IN) | payer MEDICARE ==
[~2020-07-31] VITALS: Ht 160 cm; Wt 89.6 kg
[2020-07-31 22:26] VITALS: BP 145/41
[2020-07-31 23:09] LABS: MEAN CELL VOLUME 80.2 fl (81.0-99.0); MEAN CORPUSCULAR HGB 21.4 pg (27.0-31.0); MEAN CORPUSCULAR HGB CONC 26.7 g/dl (33.0-37.0); MEAN PLATELET VOLUME 11.2 fl (9.6-12.3); NUCLEATED RED BLOOD CELL 0.2 10*3/uL (0.0-0.0); NUCLEATED RED BLOOD CELL 2.4 % (0.0-0.0); PLATELET COUNT AUTOMATED 360 10*3/uL (130-400); RED BLOOD COUNT 2.57 10*6/uL (4.10-5.10); RED CELL DISTRI WIDTH 19.8 % (0-14.5); WHITE BLOOD COUNT 7.4 10*3/uL (4.8-10.8)
[2020-07-31 23:11] LABS: HEMATOCRIT 20.6 % (37.0-47.0)
[2020-07-31 23:22] LABS: ALBUMIN 2.4 gm/dl (3.1-4.5); ALKALINE PHOSPHATASE 486 U/L (45-117); BUN 53 mg/dl (7-24); CHLORIDE 111 mmol/L (98-107); CREATININE 1.18 mg/dL (0.55-1.02); POTASSIUM 5.5 mmol/L (3.5-5.1); SGOT/AST 123 IU/L (3-35); SGPT/ALT 418 U/L (12-78); SODIUM 137 mmol/L (136-145); TOTAL PROTEIN 6.8 gm/dL (6.4-8.2)
[2020-07-31 23:22] LABS: ACT PARTIAL THROMBO TIME 33.6 SECONDS (20.0-32.1); INTERNATIONAL NORM RATIO 1.6 (2.0-3.5)
[2020-07-31 23:28] LABS: TROPONIN I < 0.015 ng/ml (<0.045)
[2020-07-31 23:35] LABS: TOTAL CELLS COUNTED 100 #CELLS
[2020-07-31 23:36] LABS: SCHISTOCYTES FEW
[2020-07-31 23:37] LABS: PLATELET SUFFICIENCY NORMAL (NORMAL)
[2020-07-31 23:38] LABS: ACANTHOCYTES MODERATE; BURR CELLS FEW
[2020-08-01] VITALS (17 sets, daily range): BP systolic 116–145; BP diastolic 45–81
[2020-08-01 05:55] LABS: ALBUMIN 2.3 gm/dl (3.1-4.5); CREATININE 1.14 mg/dL (0.55-1.02); POTASSIUM 5.1 mmol/L (3.5-5.1); TOTAL PROTEIN 6.7 gm/dL (6.4-8.2)
[2020-08-01 06:01] LABS: THYROID STIM HORMONE (HS) 1.05 uIU/ml (0.358-4.75)
[2020-08-01 06:17] LABS: ACT PARTIAL THROMBO TIME 32.2 SECONDS (20.0-32.1); INTERNATIONAL NORM RATIO 1.5 (2.0-3.5)
[2020-08-01] MEDS ORDERED: WARFARIN SOD5 MG PO (08:41)
[2020-08-01 08:50] LABS: HEMATOCRIT 27.1 % (37.0-47.0); MEAN CELL VOLUME 82.1 fl (81.0-99.0); MEAN CORPUSCULAR HGB 23.6 pg (27.0-31.0); MEAN CORPUSCULAR HGB CONC 28.8 g/dl (33.0-37.0); MEAN PLATELET VOLUME 11.1 fl (9.6-12.3); NUCLEATED RED BLOOD CELL 0.2 10*3/uL (0.0-0.0); NUCLEATED RED BLOOD CELL 2.4 % (0.0-0.0); PLATELET COUNT AUTOMATED 323 10*3/uL (130-400); RED CELL DISTRI WIDTH 18.2 % (0-14.5); WHITE BLOOD COUNT 8.3 10*3/uL (4.8-10.8)
[2020-08-01 09:06] LABS: OVALOCYTES FEW; PLATELET SUFFICIENCY NORMAL (NORMAL); POLYCHROMASIA SLIGHT; SCHISTOCYTES MODERATE; TOTAL CELLS COUNTED 100 #CELLS
[2020-08-01 09:07] LABS: ACANTHOCYTES FEW; BURR CELLS FEW
[2020-08-01] MEDS ORDERED: POTASSIUM CHLO20 ME3 PO (12:11)
[2020-08-01] MEDS ORDERED: IBU800 M2 PO (12:29)
[2020-08-01] MEDS ORDERED: LEVEMIR100 UNIT/1 SC (12:30)
[2020-08-01] MEDS ORDERED: NOVOLOG10 ML SC (12:32)
[2020-08-01] MEDS ORDERED: XARE20MG PO (12:39)
[2020-08-02] VITALS: BP 123/61
[2020-08-02 06:01] LABS: MEAN CELL VOLUME 80.1 fl (81.0-99.0); MEAN CORPUSCULAR HGB 23.4 pg (27.0-31.0); MEAN CORPUSCULAR HGB CONC 29.2 g/dl (33.0-37.0); MEAN PLATELET VOLUME 10.2 fl (9.6-12.3); NUCLEATED RED BLOOD CELL 0.1 10*3/uL (0.0-0.0); NUCLEATED RED BLOOD CELL 1.9 % (0.0-0.0); PLATELET COUNT AUTOMATED 294 10*3/uL (130-400); RED BLOOD COUNT 3.12 10*6/uL (4.10-5.10); RED CELL DISTRI WIDTH 18.7 % (0-14.5); WHITE BLOOD COUNT 6.9 10*3/uL (4.8-10.8)
[2020-08-02 06:09] LABS: INTERNATIONAL NORM RATIO 1.2 (2.0-3.5)
[2020-08-02 06:24] LABS: ALBUMIN 2.3 gm/dl (3.1-4.5); CHLORIDE 106 mmol/L (98-107); SODIUM 136 mmol/L (136-145)
[2020-08-02 06:27] LABS: BURR CELLS FEW; OVALOCYTES FEW; PLATELET SUFFICIENCY NORMAL (NORMAL); POLYCHROMASIA SLIGHT; TOTAL CELLS COUNTED 100 #CELLS
[2020-08-02 06:28] LABS: ALKALINE PHOSPHATASE 416 U/L (45-117); CREATININE 0.74 mg/dL (0.55-1.02); MICROCYTOSIS SLIGHT; ROULEAUX SLIGHT; SGOT/AST 62 IU/L (3-35); SGPT/ALT 289 U/L (12-78); TOTAL PROTEIN 6.5 gm/dL (6.4-8.2)
[2020-08-02 06:46] LABS: BUN 32 mg/dl (7-24); POTASSIUM 3.5 mmol/L (3.5-5.1)
[2020-08-02 08:00] VITALS: BP 110/47
[2020-08-02 12:00] VITALS: BP 109/56
[2020-08-02 13:42] LABS: BASO % 0.3 % (0.0-1.0); EOS # 0.1 10*3/uL (0.0-0.4); EOS % 0.8 % (1.0-4.0); HEMATOCRIT 25.3 % (37.0-47.0); LYMPH # 1.2 10*3/uL (1.3-4.4); LYMPH % 16.9 % (27.0-41.0); MEAN CELL VOLUME 79.8 fl (81.0-99.0); MEAN CORPUSCULAR HGB CONC 28.9 g/dl (33.0-37.0); MEAN PLATELET VOLUME 10.4 fl (9.6-12.3); MONO # 0.9 10*3/uL (0.1-1.0); MONO % 13.1 % (3.0-9.0); NEUT # 4.9 10*3/uL (2.3-7.9); NEUT % 68.2 % (47.0-73.0); NUCLEATED RED BLOOD CELL 0.1 10*3/uL (0.0-0.0); PLATELET COUNT AUTOMATED 308 10*3/uL (130-400); RED BLOOD COUNT 3.17 10*6/uL (4.10-5.10); RED CELL DISTRI WIDTH 18.7 % (0-14.5); WHITE BLOOD COUNT 7.2 10*3/uL (4.8-10.8)
[2020-08-02 16:00] VITALS: BP 133/62
[2020-08-02 20:00] VITALS: BP 116/67
[2020-08-03] VITALS (9 sets, daily range): BP systolic 101–135; BP diastolic 46–68
[2020-08-03 06:33] LABS: ALBUMIN 2.3 gm/dl (3.1-4.5); ALKALINE PHOSPHATASE 383 U/L (45-117); CHLORIDE 102 mmol/L (98-107); CREATININE 0.59 mg/dL (0.55-1.02); POTASSIUM 3.4 mmol/L (3.5-5.1); SGOT/AST 46 IU/L (3-35); SGPT/ALT 226 U/L (12-78); SODIUM 135 mmol/L (136-145); TOTAL PROTEIN 6.5 gm/dL (6.4-8.2)
[2020-08-03 06:34] LABS: BUN 19 mg/dl (7-24); INTERNATIONAL NORM RATIO 1.1 (2.0-3.5)
[2020-08-03 07:02] LABS: BASO % 0.4 % (0.0-1.0); EOS # 0.1 10*3/uL (0.0-0.4); EOS % 1.3 % (1.0-4.0); HEMATOCRIT 25.5 % (37.0-47.0); LYMPH # 1.5 10*3/uL (1.3-4.4); LYMPH % 20.7 % (27.0-41.0); MEAN CELL VOLUME 79.9 fl (81.0-99.0); MEAN CORPUSCULAR HGB 23.2 pg (27.0-31.0); MEAN PLATELET VOLUME 10.4 fl (9.6-12.3); MONO # 0.9 10*3/uL (0.1-1.0); NEUT # 4.5 10*3/uL (2.3-7.9); NEUT % 63.9 % (47.0-73.0); NUCLEATED RED BLOOD CELL 0.6 % (0.0-0.0); PLATELET COUNT AUTOMATED 347 10*3/uL (130-400); RED BLOOD COUNT 3.19 10*6/uL (4.10-5.10)
[2020-08-04] VITALS (11 sets, daily range): BP systolic 108–135; BP diastolic 44–63
[2020-08-04 06:45] LABS: HEMATOCRIT 23.7 % (37.0-47.0); MEAN CELL VOLUME 80.6 fl (81.0-99.0); MEAN CORPUSCULAR HGB 23.5 pg (27.0-31.0); MEAN CORPUSCULAR HGB CONC 29.1 g/dl (33.0-37.0); MEAN PLATELET VOLUME 10.6 fl (9.6-12.3); PLATELET COUNT AUTOMATED 308 10*3/uL (130-400); RED BLOOD COUNT 2.94 10*6/uL (4.10-5.10); RED CELL DISTRI WIDTH 19.9 % (0-14.5); WHITE BLOOD COUNT 6.8 10*3/uL (4.8-10.8)
[2020-08-04 06:52] LABS: ALBUMIN 2.1 gm/dl (3.1-4.5); BUN 17 mg/dl (7-24); CHLORIDE 100 mmol/L (98-107); POTASSIUM 3.4 mmol/L (3.5-5.1); SGOT/AST 39 IU/L (3-35); SGPT/ALT 179 U/L (12-78); SODIUM 132 mmol/L (136-145)
[2020-08-04 06:53] LABS: ALKALINE PHOSPHATASE 351 U/L (45-117); CREATININE 0.79 mg/dL (0.55-1.02)
[2020-08-04 08:33] LABS: BURR CELLS FEW; PLATELET SUFFICIENCY NORMAL (NORMAL); POLYCHROMASIA SLIGHT; SCHISTOCYTES FEW; TARGET CELLS FEW; TOTAL CELLS COUNTED 100 #CELLS
[2020-08-04 08:34] LABS: MICROCYTOSIS SLIGHT; OVALOCYTES FEW
[2020-08-04 15:13] LABS: HEMATOCRIT 28.8 % (37.0-47.0)
[2020-08-05] VITALS: BP 137/70
[2020-08-05 06:24] LABS: BASO % 0.3 % (0.0-1.0); EOS # 0.1 10*3/uL (0.0-0.4); EOS % 1.1 % (1.0-4.0); HEMATOCRIT 27.4 % (37.0-47.0); LYMPH # 1.3 10*3/uL (1.3-4.4); LYMPH % 20.7 % (27.0-41.0); MEAN CELL VOLUME 80.8 fl (81.0-99.0); MEAN CORPUSCULAR HGB 24.2 pg (27.0-31.0); MEAN CORPUSCULAR HGB CONC 29.9 g/dl (33.0-37.0); MEAN PLATELET VOLUME 10.5 fl (9.6-12.3); MONO % 16.1 % (3.0-9.0); NEUT # 3.9 10*3/uL (2.3-7.9); PLATELET COUNT AUTOMATED 315 10*3/uL (130-400); RED BLOOD COUNT 3.39 10*6/uL (4.10-5.10); RED CELL DISTRI WIDTH 19.4 % (0-14.5); WHITE BLOOD COUNT 6.4 10*3/uL (4.8-10.8)
[2020-08-05 06:29] LABS: BUN 17 mg/dl (7-24); CHLORIDE 102 mmol/L (98-107); CREATININE 0.67 mg/dL (0.55-1.02); POTASSIUM 3.4 mmol/L (3.5-5.1); SODIUM 136 mmol/L (136-145)
[2020-08-05 08:00] VITALS: BP 118/54
[2020-08-05 12:00] VITALS: BP 115/50
[2020-08-05] MEDS ORDERED: FUROSEMIDE40 MG PO (12:42)
[2020-08-05] MEDS ORDERED: PACERONE200 MG PO (12:42)
[2020-08-05] MEDS ORDERED: PROTONIX40 MG PO (12:42)
[2020-08-05] MEDS ORDERED: K-TAB20 MEQ PO (12:42)
== END 2020-08-05 14:45 | disposition home health service (06) | DRG 377 ==
LOC: ED 22:13 → EDHOLD 08-01 02:34 → 4E 08-01 02:34
PROVIDERS: Emergency Medicine; Family Medicine; Hospitalist; Internal Medicine; ADMIT Emergency Medicine; ATTEND Emergency Medicine
PROC: 30233N1 Transfusion of Nonautologous Red Blood Cells into Peripheral Vein, Percutaneous Approach (ICD-10-PCS; 2020-08-01)
PROC: 0DB78ZX Excision of Stomach, Pylorus, Via Natural or Artificial Opening Endoscopic, Diagnostic (ICD-10-PCS; principal; 2020-08-03)
PROC: 0DJD8ZZ Inspection of Lower Intestinal Tract, Via Natural or Artificial Opening Endoscopic (ICD-10-PCS; 2020-08-03)
DX: K29.71 Gastritis, unspecified, with bleeding (principal); N17.0 Acute kidney failure with tubular necrosis; I50.33 Acute on chronic diastolic (congestive) heart failure; E43 Unspecified severe protein-calorie malnutrition; I13.0 Hypertensive heart and chronic kidney disease with heart failure and stage 1 through stage 4 chronic kidney disease, or unspecified chronic kidney disease; E87.2 Acidosis; J98.11 Atelectasis; D62 Acute posthemorrhagic anemia; E11.65 Type 2 diabetes mellitus with hyperglycemia; N18.31 Chronic kidney disease, stage 3a; I48.0 Paroxysmal atrial fibrillation; E78.2 Mixed hyperlipidemia; E55.9 Vitamin D deficiency, unspecified; J44.9 Chronic obstructive pulmonary disease, unspecified; R74.01 Elevation of levels of liver transaminase levels; R79.1 Abnormal coagulation profile; E87.5 Hyperkalemia; Z96.653 Presence of artificial knee joint, bilateral; R94.5 Abnormal results of liver function studies; E11.621 Type 2 diabetes mellitus with foot ulcer; L97.529 Non-pressure chronic ulcer of other part of left foot with unspecified severity; E11.40 Type 2 diabetes mellitus with diabetic neuropathy, unspecified; B35.1 Tinea unguium; I70.203 Unspecified atherosclerosis of native arteries of extremities, bilateral legs; R79.89 Other specified abnormal findings of blood chemistry; E11.22 Type 2 diabetes mellitus with diabetic chronic kidney disease; R07.9 Chest pain, unspecified; K80.20 Calculus of gallbladder without cholecystitis without obstruction; Z79.4 Long term (current) use of insulin; Z85.3 Personal history of malignant neoplasm of breast; Z86.16 Personal history of COVID-19; Z89.021 Acquired absence of right finger(s); Z98.51 Tubal ligation status; Z82.49 Family history of ischemic heart disease and other diseases of the circulatory system; Z83.3 Family history of diabetes mellitus; Z84.1 Family history of disorders of kidney and ureter; Z80.9 Family history of malignant neoplasm, unspecified; Z95.2 Presence of prosthetic heart valve; Z87.891 Personal history of nicotine dependence; Z79.899 Other long term (current) drug therapy; Z79.01 Long term (current) use of anticoagulants; Z68.34 Body mass index [BMI] 34.0-34.9, adult

== ENCOUNTER 2020-09-13 16:21 | Inpatient (IN) | payer MEDICARE ==
[2020-09-13] VITALS (9 sets, daily range): BP systolic 114–158; BP diastolic 42–81
[~2020-09-13] VITALS: Ht 165.1 cm; Wt 97.7 kg
[~2020-09-13 16:21] MED LIST changes: +FUROSEMIDE40 MG PO; +IBU800 M2 PO; +LEVEMIR100 UNIT/1 SC; +NOVOLOG10 ML SC; +PACERONE200 MG PO; +PROTONIX40 MG PO; +WARFARIN SOD5 MG PO; +XARE20MG PO
[2020-09-13 17:10] LABS: MEAN CELL VOLUME 80.2 fl (81.0-99.0); MEAN CORPUSCULAR HGB 21.5 pg (27.0-31.0); MEAN CORPUSCULAR HGB CONC 26.8 g/dl (33.0-37.0); MEAN PLATELET VOLUME 9.8 fl (9.6-12.3); NUCLEATED RED BLOOD CELL 0.1 10*3/uL (0.0-0.0); PLATELET COUNT AUTOMATED 378 10*3/uL (130-400); RED BLOOD COUNT 2.47 10*6/uL (4.10-5.10); RED CELL DISTRI WIDTH 19.9 % (0-14.5); WHITE BLOOD COUNT 5.7 10*3/uL (4.8-10.8)
[2020-09-13 17:19] LABS: HEMATOCRIT 19.8 % (37.0-47.0)
[2020-09-13 17:26] LABS: ALBUMIN 2.3 gm/dl (3.1-4.5); ALKALINE PHOSPHATASE 169 U/L (45-117); BUN 48 mg/dl (7-24); CHLORIDE 112 mmol/L (98-107); CREATININE 1.22 mg/dL (0.55-1.02); POTASSIUM 5.3 mmol/L (3.5-5.1); SGOT/AST 52 IU/L (3-35); SGPT/ALT 56 U/L (12-78); SODIUM 138 mmol/L (136-145); TOTAL PROTEIN 6.5 gm/dL (6.4-8.2); TROPONIN I < 0.015 ng/ml (<0.045)
[2020-09-13 17:37] LABS: BURR CELLS MODERATE; OVALOCYTES FEW; PLATELET SUFFICIENCY NORMAL (NORMAL); TOTAL CELLS COUNTED 100 #CELLS
[2020-09-14] VITALS (21 sets, daily range): BP systolic 102–168; BP diastolic 37–83
[2020-09-14] MEDS ORDERED: PACERONE200 MG PO (09:23)
[2020-09-14] MEDS ORDERED: LASIX40 MG PO (09:24)
[2020-09-14] MEDS ORDERED: KLOR-CON M2020 ME1 PO (09:25)
[2020-09-14] MEDS ORDERED: Motrin,Rufen800 MG PO (09:28)
[2020-09-14] MEDS ORDERED: XARE20MG PO (09:29)
[2020-09-14 10:44] LABS: HEMATOCRIT 23.6 % (37.0-47.0); MEAN CORPUSCULAR HGB 21.7 pg (27.0-31.0); MEAN CORPUSCULAR HGB CONC 28.4 g/dl (33.0-37.0); MEAN PLATELET VOLUME 9.7 fl (9.6-12.3); NUCLEATED RED BLOOD CELL 0.9 % (0.0-0.0); PLATELET COUNT AUTOMATED 327 10*3/uL (130-400); RED BLOOD COUNT 3.09 10*6/uL (4.10-5.10); RED CELL DISTRI WIDTH 19.9 % (0-14.5); WHITE BLOOD COUNT 4.5 10*3/uL (4.8-10.8)
[2020-09-14 10:46] LABS: MEAN CELL VOLUME 76.4 fl (81.0-99.0)
[2020-09-14 10:59] LABS: ALBUMIN 2.3 gm/dl (3.1-4.5); ALKALINE PHOSPHATASE 163 U/L (45-117); CHLORIDE 114 mmol/L (98-107); CREATININE 0.82 mg/dL (0.55-1.02); SGOT/AST 46 IU/L (3-35); SGPT/ALT 52 U/L (12-78); SODIUM 141 mmol/L (136-145); TOTAL PROTEIN 6.2 gm/dL (6.4-8.2)
[2020-09-14 11:02] LABS: BUN 37 mg/dl (7-24); POTASSIUM 4.3 mmol/L (3.5-5.1)
[2020-09-14 11:05] LABS: ACANTHOCYTES FEW; MICROCYTOSIS SLIGHT; OVALOCYTES FEW; PLATELET SUFFICIENCY NORMAL (NORMAL); POLYCHROMASIA SLIGHT; SCHISTOCYTES FEW; TARGET CELLS FEW; TOTAL CELLS COUNTED 100 #CELLS
[2020-09-14 17:35] LABS: HEMATOCRIT 27.1 % (37.0-47.0)
[2020-09-15] VITALS: BP 110/60
[2020-09-15 04:00] VITALS: BP 104/46
[2020-09-15 05:27] LABS: BUN 28 mg/dl (7-24); CHLORIDE 109 mmol/L (98-107); CREATININE 0.64 mg/dL (0.55-1.02); POTASSIUM 3.5 mmol/L (3.5-5.1); SODIUM 138 mmol/L (136-145)
[2020-09-15 06:03] LABS: HEMATOCRIT 25.9 % (37.0-47.0); MEAN CORPUSCULAR HGB CONC 28.2 g/dl (33.0-37.0); NUCLEATED RED BLOOD CELL 0.1 10*3/uL (0.0-0.0); PLATELET COUNT AUTOMATED 323 10*3/uL (130-400); RED BLOOD COUNT 3.32 10*6/uL (4.10-5.10); RED CELL DISTRI WIDTH 19.8 % (0-14.5); WHITE BLOOD COUNT 4.4 10*3/uL (4.8-10.8)
[2020-09-15 06:34] LABS: BASOPHILS 1 % (0-1); BURR CELLS MODERATE; MICROCYTOSIS SLIGHT; OVALOCYTES FEW; PLATELET SUFFICIENCY NORMAL (NORMAL); POLYCHROMASIA SLIGHT; SCHISTOCYTES FEW; TOTAL CELLS COUNTED 100 #CELLS
[2020-09-15 08:00] VITALS: BP 112/45
[2020-09-15 12:00] VITALS: BP 102/46
[2020-09-15 16:00] VITALS: BP 104/43
[2020-09-15 20:00] VITALS: BP 98/50
[2020-09-16] VITALS: BP 111/74
[2020-09-16 04:00] VITALS: BP 104/48
[2020-09-16 05:12] LABS: ALBUMIN 2.3 gm/dl (3.1-4.5); ALKALINE PHOSPHATASE 167 U/L (45-117); BUN 24 mg/dl (7-24); CHLORIDE 107 mmol/L (98-107); CREATININE 0.88 mg/dL (0.55-1.02); POTASSIUM 3.8 mmol/L (3.5-5.1); SGOT/AST 31 IU/L (3-35); SGPT/ALT 42 U/L (12-78); SODIUM 139 mmol/L (136-145); TOTAL PROTEIN 6.4 gm/dL (6.4-8.2)
[2020-09-16 06:20] LABS: BASO % 0.6 % (0.0-1.0); EOS # 0.1 10*3/uL (0.0-0.4); EOS % 1.5 % (1.0-4.0); HEMATOCRIT 26.6 % (37.0-47.0); LYMPH # 0.9 10*3/uL (1.3-4.4); MEAN CELL VOLUME 79.6 fl (81.0-99.0); MEAN CORPUSCULAR HGB 22.2 pg (27.0-31.0); MEAN CORPUSCULAR HGB CONC 27.8 g/dl (33.0-37.0); MEAN PLATELET VOLUME 10.1 fl (9.6-12.3); MONO % 18.9 % (3.0-9.0); NEUT # 3.3 10*3/uL (2.3-7.9); NEUT % 61.4 % (47.0-73.0); NUCLEATED RED BLOOD CELL 0.1 10*3/uL (0.0-0.0); NUCLEATED RED BLOOD CELL 0.9 % (0.0-0.0); PLATELET COUNT AUTOMATED 316 10*3/uL (130-400); RED BLOOD COUNT 3.34 10*6/uL (4.10-5.10); RED CELL DISTRI WIDTH 19.9 % (0-14.5); WHITE BLOOD COUNT 5.3 10*3/uL (4.8-10.8)
[2020-09-16 08:00] VITALS: BP 106/55
[2020-09-16 16:00] VITALS: BP 118/59
[2020-09-16 22:20] VITALS: BP 120/50
[2020-09-17] VITALS: BP 123/57
[2020-09-17 06:17] LABS: BASO % 0.4 % (0.0-1.0); EOS # 0.1 10*3/uL (0.0-0.4); EOS % 0.9 % (1.0-4.0); HEMATOCRIT 25.8 % (37.0-47.0); LYMPH # 0.9 10*3/uL (1.3-4.4); LYMPH % 17.2 % (27.0-41.0); MEAN CELL VOLUME 79.1 fl (81.0-99.0); MEAN CORPUSCULAR HGB 22.1 pg (27.0-31.0); MEAN CORPUSCULAR HGB CONC 27.9 g/dl (33.0-37.0); MEAN PLATELET VOLUME 10.1 fl (9.6-12.3); MONO # 1.1 10*3/uL (0.1-1.0); MONO % 19.6 % (3.0-9.0); NEUT # 3.3 10*3/uL (2.3-7.9); NEUT % 61.3 % (47.0-73.0); NUCLEATED RED BLOOD CELL 0.4 % (0.0-0.0); PLATELET COUNT AUTOMATED 305 10*3/uL (130-400); RED BLOOD COUNT 3.26 10*6/uL (4.10-5.10); RED CELL DISTRI WIDTH 19.8 % (0-14.5); WHITE BLOOD COUNT 5.4 10*3/uL (4.8-10.8)
[2020-09-17 07:04] LABS: ALBUMIN 2.2 gm/dl (3.1-4.5); ALKALINE PHOSPHATASE 159 U/L (45-117); BUN 21 mg/dl (7-24); CHLORIDE 105 mmol/L (98-107); CREATININE 0.68 mg/dL (0.55-1.02); POTASSIUM 3.6 mmol/L (3.5-5.1); SGOT/AST 26 IU/L (3-35); SGPT/ALT 39 U/L (12-78); SODIUM 136 mmol/L (136-145); TOTAL PROTEIN 6.4 gm/dL (6.4-8.2)
[2020-09-17 08:00] VITALS: BP 111/60
[2020-09-17] MEDS ORDERED: PROTONIX40 MG PO (15:59)
[2020-09-17 16:00] VITALS: BP 138/50
== END 2020-09-17 17:20 | disposition home or self-care (01) | DRG 377 ==
LOC: ED 16:21 → EDHOLD 19:42 → ICCU 19:42 → 5E 09-16 14:38
PROVIDERS: Internal Medicine; Nurse Practitioner Family; Student in an Organized Health Care Education/Training Program; ADMIT Student in an Organized Health Care Education/Training Program; ATTEND Student in an Organized Health Care Education/Training Program
PROC: 30233N1 Transfusion of Nonautologous Red Blood Cells into Peripheral Vein, Percutaneous Approach (ICD-10-PCS; principal; 2020-09-13)
PROC: 02HV33Z Insertion of Infusion Device into Superior Vena Cava, Percutaneous Approach (ICD-10-PCS; 2020-09-14)
PROC: B548ZZA Ultrasonography of Superior Vena Cava, Guidance (ICD-10-PCS; 2020-09-14)
DX: K92.2 Gastrointestinal hemorrhage, unspecified (principal); E43 Unspecified severe protein-calorie malnutrition; N17.0 Acute kidney failure with tubular necrosis; I50.33 Acute on chronic diastolic (congestive) heart failure; J18.9 Pneumonia, unspecified organism; I13.0 Hypertensive heart and chronic kidney disease with heart failure and stage 1 through stage 4 chronic kidney disease, or unspecified chronic kidney disease; E87.2 Acidosis; L03.90 Cellulitis, unspecified; E11.65 Type 2 diabetes mellitus with hyperglycemia; E87.5 Hyperkalemia; C50.919 Malignant neoplasm of unspecified site of unspecified female breast; N18.32 Chronic kidney disease, stage 3b; R19.7 Diarrhea, unspecified; K21.9 Gastro-esophageal reflux disease without esophagitis; E11.22 Type 2 diabetes mellitus with diabetic chronic kidney disease; E78.5 Hyperlipidemia, unspecified; B86 Scabies; E87.8 Other disorders of electrolyte and fluid balance, not elsewhere classified; E55.9 Vitamin D deficiency, unspecified; D50.9 Iron deficiency anemia, unspecified; R74.01 Elevation of levels of liver transaminase levels; I48.0 Paroxysmal atrial fibrillation; E66.9 Obesity, unspecified; Z96.653 Presence of artificial knee joint, bilateral; Z87.891 Personal history of nicotine dependence; Z89.021 Acquired absence of right finger(s); Z79.01 Long term (current) use of anticoagulants; Z79.899 Other long term (current) drug therapy; Z79.4 Long term (current) use of insulin; Z68.35 Body mass index [BMI] 35.0-35.9, adult

== ENCOUNTER 2020-09-21 16:45 | Inpatient (IN) | payer MEDICARE ==
[~2020-09-21] VITALS: Ht 165.1 cm; Wt 95.3 kg
[~2020-09-21 16:45] MED LIST changes: +Motrin,Rufen800 MG PO
[2020-09-21 17:05] VITALS: BP 134/56
[2020-09-21 18:10] LABS: BASO % 0.3 % (0.0-1.0); EOS # 0.1 10*3/uL (0.0-0.4); HEMATOCRIT 25.8 % (37.0-47.0); LYMPH # 0.6 10*3/uL (1.3-4.4); LYMPH % 10.2 % (27.0-41.0); MEAN CELL VOLUME 78.7 fl (81.0-99.0); MEAN CORPUSCULAR HGB 22.3 pg (27.0-31.0); MEAN CORPUSCULAR HGB CONC 28.3 g/dl (33.0-37.0); MEAN PLATELET VOLUME 9.7 fl (9.6-12.3); MONO # 0.9 10*3/uL (0.1-1.0); MONO % 14.7 % (3.0-9.0); NEUT # 4.5 10*3/uL (2.3-7.9); NEUT % 73.3 % (47.0-73.0); PLATELET COUNT AUTOMATED 303 10*3/uL (130-400); RED BLOOD COUNT 3.28 10*6/uL (4.10-5.10); RED CELL DISTRI WIDTH 20.1 % (0-14.5); WHITE BLOOD COUNT 6.2 10*3/uL (4.8-10.8)
[2020-09-21 18:26] LABS: ALBUMIN 2.3 gm/dl (3.1-4.5); ALKALINE PHOSPHATASE 177 U/L (45-117); BUN 30 mg/dl (7-24); CHLORIDE 109 mmol/L (98-107); CREATININE 0.97 mg/dL (0.55-1.02); POTASSIUM 4.3 mmol/L (3.5-5.1); SGOT/AST 38 IU/L (3-35); SGPT/ALT 48 U/L (12-78); SODIUM 140 mmol/L (136-145); TOTAL PROTEIN 6.7 gm/dL (6.4-8.2)
[2020-09-21 18:28] LABS: TROPONIN I < 0.015 ng/ml (<0.045)
[2020-09-21 20:50] VITALS: BP 133/62
[2020-09-22] VITALS: BP 150/95
[2020-09-22 06:27] LABS: BASO % 0.3 % (0.0-1.0); EOS # 0.1 10*3/uL (0.0-0.4); EOS % 1.1 % (1.0-4.0); HEMATOCRIT 25.3 % (37.0-47.0); LYMPH # 0.9 10*3/uL (1.3-4.4); LYMPH % 13.4 % (27.0-41.0); MEAN CELL VOLUME 79.1 fl (81.0-99.0); MEAN CORPUSCULAR HGB 21.9 pg (27.0-31.0); MEAN CORPUSCULAR HGB CONC 27.7 g/dl (33.0-37.0); MEAN PLATELET VOLUME 9.9 fl (9.6-12.3); MONO # 1.1 10*3/uL (0.1-1.0); MONO % 16.8 % (3.0-9.0); NEUT # 4.3 10*3/uL (2.3-7.9); NEUT % 67.8 % (47.0-73.0); PLATELET COUNT AUTOMATED 300 10*3/uL (130-400); RED CELL DISTRI WIDTH 19.7 % (0-14.5); WHITE BLOOD COUNT 6.4 10*3/uL (4.8-10.8)
[2020-09-22 06:59] LABS: ALBUMIN 2.2 gm/dl (3.1-4.5); BUN 30 mg/dl (7-24); CHLORIDE 108 mmol/L (98-107); POTASSIUM 3.5 mmol/L (3.5-5.1); SGOT/AST 39 IU/L (3-35); SGPT/ALT 46 U/L (12-78); SODIUM 140 mmol/L (136-145)
[2020-09-22 07:02] LABS: ALKALINE PHOSPHATASE 169 U/L (45-117); CREATININE 0.75 mg/dL (0.55-1.02); TOTAL PROTEIN 6.4 gm/dL (6.4-8.2)
[2020-09-22 12:00] VITALS: BP 125/59
[2020-09-22 16:00] VITALS: BP 103/50
[2020-09-22 20:00] VITALS: BP 113/47
[2020-09-23] VITALS (18 sets, daily range): BP systolic 106–132; BP diastolic 49–89
[2020-09-23 06:16] LABS: HEMATOCRIT 25.6 % (37.0-47.0); MEAN CELL VOLUME 79.3 fl (81.0-99.0); MEAN CORPUSCULAR HGB 21.4 pg (27.0-31.0); MEAN PLATELET VOLUME 9.7 fl (9.6-12.3); PLATELET COUNT AUTOMATED 315 10*3/uL (130-400); RED BLOOD COUNT 3.23 10*6/uL (4.10-5.10); RED CELL DISTRI WIDTH 19.3 % (0-14.5); WHITE BLOOD COUNT 5.4 10*3/uL (4.8-10.8)
[2020-09-23 06:45] LABS: BUN 32 mg/dl (7-24); CHLORIDE 105 mmol/L (98-107); CREATININE 0.93 mg/dL (0.55-1.02); POTASSIUM 3.8 mmol/L (3.5-5.1); SODIUM 137 mmol/L (136-145)
[2020-09-23 06:59] LABS: BASOPHILS 1 % (0-1); PLATELET SUFFICIENCY NORMAL (NORMAL); TOTAL CELLS COUNTED 100 #CELLS
[2020-09-23 07:00] LABS: MICROCYTOSIS SLIGHT; OVALOCYTES FEW; POLYCHROMASIA SLIGHT; SCHISTOCYTES FEW; TARGET CELLS FEW
[2020-09-23 07:01] LABS: BURR CELLS MODERATE
[2020-09-23 19:03] LABS: BASO % 0.5 % (0.0-1.0); EOS # 0.1 10*3/uL (0.0-0.4); EOS % 1.1 % (1.0-4.0); HEMATOCRIT 31.6 % (37.0-47.0); LYMPH # 0.8 10*3/uL (1.3-4.4); LYMPH % 14.5 % (27.0-41.0); MEAN CELL VOLUME 80.6 fl (81.0-99.0); MEAN CORPUSCULAR HGB 23.2 pg (27.0-31.0); MEAN CORPUSCULAR HGB CONC 28.8 g/dl (33.0-37.0); MEAN PLATELET VOLUME 9.9 fl (9.6-12.3); MONO # 0.9 10*3/uL (0.1-1.0); MONO % 16.3 % (3.0-9.0); NEUT # 3.7 10*3/uL (2.3-7.9); NEUT % 67.2 % (47.0-73.0); PLATELET COUNT AUTOMATED 308 10*3/uL (130-400); RED BLOOD COUNT 3.92 10*6/uL (4.10-5.10); RED CELL DISTRI WIDTH 18.8 % (0-14.5); WHITE BLOOD COUNT 5.5 10*3/uL (4.8-10.8)
[2020-09-24] VITALS: BP 127/66
[2020-09-24 06:17] LABS: BASO % 0.4 % (0.0-1.0); EOS # 0.1 10*3/uL (0.0-0.4); EOS % 1.5 % (1.0-4.0); HEMATOCRIT 29.7 % (37.0-47.0); LYMPH # 0.8 10*3/uL (1.3-4.4); LYMPH % 15.3 % (27.0-41.0); MEAN CELL VOLUME 80.3 fl (81.0-99.0); MEAN CORPUSCULAR HGB 23.2 pg (27.0-31.0); MEAN PLATELET VOLUME 10.3 fl (9.6-12.3); MONO # 0.7 10*3/uL (0.1-1.0); MONO % 13.5 % (3.0-9.0); NEUT # 3.7 10*3/uL (2.3-7.9); NEUT % 68.9 % (47.0-73.0); PLATELET COUNT AUTOMATED 309 10*3/uL (130-400); RED CELL DISTRI WIDTH 18.7 % (0-14.5); WHITE BLOOD COUNT 5.4 10*3/uL (4.8-10.8)
[2020-09-24 06:32] LABS: BUN 31 mg/dl (7-24); CHLORIDE 104 mmol/L (98-107); POTASSIUM 3.5 mmol/L (3.5-5.1); SODIUM 136 mmol/L (136-145)
[2020-09-24 06:35] LABS: CREATININE 1.04 mg/dL (0.55-1.02)
[2020-09-24 08:00] VITALS: BP 104/49
[2020-09-24 12:00] VITALS: BP 114/63
[2020-09-24 16:00] VITALS: BP 120/54
[2020-09-24 20:00] VITALS: BP 120/63
[2020-09-25] VITALS: BP 128/59
[2020-09-25 06:11] LABS: BASO % 0.6 % (0.0-1.0); EOS # 0.1 10*3/uL (0.0-0.4); EOS % 2.1 % (1.0-4.0); HEMATOCRIT 31.2 % (37.0-47.0); LYMPH # 0.8 10*3/uL (1.3-4.4); LYMPH % 17.3 % (27.0-41.0); MEAN CELL VOLUME 80.8 fl (81.0-99.0); MEAN CORPUSCULAR HGB 23.3 pg (27.0-31.0); MEAN CORPUSCULAR HGB CONC 28.8 g/dl (33.0-37.0); MEAN PLATELET VOLUME 10.5 fl (9.6-12.3); MONO # 0.8 10*3/uL (0.1-1.0); MONO % 16.3 % (3.0-9.0); NEUT % 63.3 % (47.0-73.0); PLATELET COUNT AUTOMATED 330 10*3/uL (130-400); RED BLOOD COUNT 3.86 10*6/uL (4.10-5.10); RED CELL DISTRI WIDTH 19.1 % (0-14.5); WHITE BLOOD COUNT 4.8 10*3/uL (4.8-10.8)
[2020-09-25 06:30] LABS: BUN 27 mg/dl (7-24); CHLORIDE 105 mmol/L (98-107); POTASSIUM 3.4 mmol/L (3.5-5.1); SODIUM 137 mmol/L (136-145)
[2020-09-25 08:00] VITALS: BP 121/71
[2020-09-25 12:00] VITALS: BP 123/57
[2020-09-25] MEDS ORDERED: LASIX40 MG PO (12:36)
== END 2020-09-25 14:20 | disposition home or self-care (01) | DRG 291 ==
LOC: ED 16:45 → 4E 19:44 → EDHOLD 19:44 → 4E 20:20
PROVIDERS: Hospitalist; Internal Medicine; Physician Assistant; ADMIT Student in an Organized Health Care Education/Training Program; ATTEND Student in an Organized Health Care Education/Training Program
PROC: 30233N1 Transfusion of Nonautologous Red Blood Cells into Peripheral Vein, Percutaneous Approach (ICD-10-PCS; principal; 2020-09-23)
DX: I13.0 Hypertensive heart and chronic kidney disease with heart failure and stage 1 through stage 4 chronic kidney disease, or unspecified chronic kidney disease (principal); I50.33 Acute on chronic diastolic (congestive) heart failure; E43 Unspecified severe protein-calorie malnutrition; I48.20 Chronic atrial fibrillation, unspecified; J98.11 Atelectasis; D50.9 Iron deficiency anemia, unspecified; E78.5 Hyperlipidemia, unspecified; N18.32 Chronic kidney disease, stage 3b; E11.59 Type 2 diabetes mellitus with other circulatory complications; R74.01 Elevation of levels of liver transaminase levels; R74.8 Abnormal levels of other serum enzymes; E66.9 Obesity, unspecified; E87.8 Other disorders of electrolyte and fluid balance, not elsewhere classified; Z96.653 Presence of artificial knee joint, bilateral; I08.3 Combined rheumatic disorders of mitral, aortic and tricuspid valves; E83.41 Hypermagnesemia; B86 Scabies; E11.22 Type 2 diabetes mellitus with diabetic chronic kidney disease; Z79.4 Long term (current) use of insulin; Z85.3 Personal history of malignant neoplasm of breast; Z89.021 Acquired absence of right finger(s); Z87.891 Personal history of nicotine dependence; Z80.8 Family history of malignant neoplasm of other organs or systems; Z79.899 Other long term (current) drug therapy; Z79.01 Long term (current) use of anticoagulants; Z82.49 Family history of ischemic heart disease and other diseases of the circulatory system; Z83.3 Family history of diabetes mellitus; Z84.1 Family history of disorders of kidney and ureter; Z68.35 Body mass index [BMI] 35.0-35.9, adult

== ENCOUNTER 2020-11-30 14:49 | Inpatient (IN) | payer MEDICARE ==
[~2020-11-30] VITALS: Ht 165.1 cm; Wt 85.9 kg
[2020-11-30 15:20] VITALS: BP 134/71
[2020-11-30 18:09] LABS: MEAN CORPUSCULAR HGB 24.8 pg (27.0-31.0); MEAN CORPUSCULAR HGB CONC 29.1 g/dl (33.0-37.0); MEAN PLATELET VOLUME 11.2 fl (9.6-12.3); PLATELET COUNT AUTOMATED 331 10*3/uL (130-400); RED CELL DISTRI WIDTH 23.4 % (0-14.5); WHITE BLOOD COUNT 10.7 10*3/uL (4.8-10.8)
[2020-11-30 18:17] LABS: ALBUMIN 2.5 gm/dl (3.1-4.5); CREATININE 1.11 mg/dL (0.55-1.02); TOTAL PROTEIN 7.7 gm/dL (6.4-8.2); TROPONIN I 0.026 ng/ml (<0.045)
[2020-11-30 18:27] LABS: TOTAL CELLS COUNTED 100 #CELLS
[2020-11-30 18:28] LABS: BURR CELLS MODERATE; PLATELET SUFFICIENCY NORMAL (NORMAL); SCHISTOCYTES FEW
[2020-11-30 18:29] LABS: MICROCYTOSIS SLIGHT
[2020-11-30 18:36] LABS: POTASSIUM 1.8 mmol/L (3.5-5.1)
[2020-11-30 19:28] VITALS: BP 130/52
[2020-11-30 21:08] VITALS: BP 120/48
[2020-11-30 22:57] VITALS: BP 98/47
[2020-12-01] VITALS (12 sets, daily range): BP systolic 104–142; BP diastolic 43–87
[2020-12-01 00:04] LABS: BUN 20 mg/dl (7-24); CHLORIDE 108 mmol/L (98-107); CREATININE 0.91 mg/dL (0.55-1.02); SODIUM 139 mmol/L (136-145)
[2020-12-01 00:12] LABS: POTASSIUM 1.6 mmol/L (3.5-5.1)
[2020-12-01 01:41] LABS: ABG BASE EXCESS -3.5 mmol/L (-2.0-2.0); ARTERIAL BLOOD GAS PH 7.443 (7.35-7.45); ARTERIAL BLOOD GAS PO2 63.2 (80-90)
[2020-12-01 04:41] LABS: BASO % 0.1 % (0.0-1.0); EOS % 0.1 % (1.0-4.0); HEMATOCRIT 28.4 % (37.0-47.0); LYMPH # 0.5 10*3/uL (1.3-4.4); MEAN CORPUSCULAR HGB 24.9 pg (27.0-31.0); MEAN CORPUSCULAR HGB CONC 29.9 g/dl (33.0-37.0); MONO # 0.6 10*3/uL (0.1-1.0); MONO % 7.6 % (3.0-9.0); NEUT # 7.2 10*3/uL (2.3-7.9); NEUT % 85.7 % (47.0-73.0); PLATELET COUNT AUTOMATED 281 10*3/uL (130-400); RED BLOOD COUNT 3.42 10*6/uL (4.10-5.10); RED CELL DISTRI WIDTH 23.5 % (0-14.5); WHITE BLOOD COUNT 8.4 10*3/uL (4.8-10.8)
[2020-12-01 05:19] LABS: ALBUMIN 2.1 gm/dl (3.1-4.5); ALKALINE PHOSPHATASE 171 U/L (45-117); BUN 21 mg/dl (7-24); CHLORIDE 111 mmol/L (98-107); CREATININE 0.87 mg/dL (0.55-1.02); SGOT/AST 45 IU/L (3-35); SGPT/ALT 31 U/L (12-78); SODIUM 141 mmol/L (136-145); TOTAL PROTEIN 6.1 gm/dL (6.4-8.2)
[2020-12-01 05:28] LABS: POTASSIUM 2.4 mmol/L (3.5-5.1)
[2020-12-01 08:42] LABS: BUN 19 mg/dl (7-24); CHLORIDE 110 mmol/L (98-107); CREATININE 0.96 mg/dL (0.55-1.02); SODIUM 140 mmol/L (136-145)
[2020-12-01 12:46] LABS: BUN 19 mg/dl (7-24); CHLORIDE 111 mmol/L (98-107); CREATININE 0.96 mg/dL (0.55-1.02); SODIUM 140 mmol/L (136-145)
[2020-12-01 18:32] LABS: BUN 18 mg/dl (7-24); CHLORIDE 111 mmol/L (98-107); CREATININE 1.05 mg/dL (0.55-1.02); SODIUM 141 mmol/L (136-145)
[2020-12-01 18:34] LABS: POTASSIUM 2.1 mmol/L (3.5-5.1)
[2020-12-01] MEDS ORDERED: FEROSUL325 M1 PO (19:46)
[2020-12-02 00:35] LABS: BUN 18 mg/dl (7-24); CHLORIDE 110 mmol/L (98-107); CREATININE 1.05 mg/dL (0.55-1.02); POTASSIUM 2.6 mmol/L (3.5-5.1); SODIUM 138 mmol/L (136-145)
[2020-12-02 05:59] LABS: BUN 17 mg/dl (7-24); CHLORIDE 110 mmol/L (98-107); CREATININE 0.98 mg/dL (0.55-1.02); POTASSIUM 2.6 mmol/L (3.5-5.1); SODIUM 140 mmol/L (136-145)
[2020-12-02 06:16] LABS: BASO % 0.1 % (0.0-1.0); EOS # 0.1 10*3/uL (0.0-0.4); EOS % 1.8 % (1.0-4.0); HEMATOCRIT 30.1 % (37.0-47.0); LYMPH # 0.7 10*3/uL (1.3-4.4); LYMPH % 10.9 % (27.0-41.0); MEAN CELL VOLUME 84.3 fl (81.0-99.0); MEAN CORPUSCULAR HGB 24.9 pg (27.0-31.0); MEAN CORPUSCULAR HGB CONC 29.6 g/dl (33.0-37.0); MEAN PLATELET VOLUME 10.7 fl (9.6-12.3); MONO # 0.7 10*3/uL (0.1-1.0); MONO % 9.9 % (3.0-9.0); NEUT # 5.2 10*3/uL (2.3-7.9); PLATELET COUNT AUTOMATED 275 10*3/uL (130-400); RED BLOOD COUNT 3.57 10*6/uL (4.10-5.10); RED CELL DISTRI WIDTH 23.7 % (0-14.5); WHITE BLOOD COUNT 6.7 10*3/uL (4.8-10.8)
[2020-12-02 08:00] VITALS: BP 126/73
[2020-12-02 12:00] VITALS: BP 126/73
[2020-12-02 13:12] LABS: BUN 16 mg/dl (7-24); CHLORIDE 111 mmol/L (98-107); CREATININE 0.95 mg/dL (0.55-1.02); POTASSIUM 3.3 mmol/L (3.5-5.1); SODIUM 140 mmol/L (136-145)
[2020-12-02 16:00] VITALS: BP 127/72
[2020-12-02 20:00] VITALS: BP 126/65
[2020-12-02 20:37] LABS: BUN 16 mg/dl (7-24); CHLORIDE 111 mmol/L (98-107); CREATININE 0.83 mg/dL (0.55-1.02); POTASSIUM 3.5 mmol/L (3.5-5.1); SODIUM 141 mmol/L (136-145)
[2020-12-03] VITALS: BP 123/58
[2020-12-03 00:23] LABS: BUN 15 mg/dl (7-24); CHLORIDE 114 mmol/L (98-107); CREATININE 0.89 mg/dL (0.55-1.02); POTASSIUM 3.7 mmol/L (3.5-5.1); SODIUM 141 mmol/L (136-145)
[2020-12-03 06:16] LABS: BASO % 0.7 % (0.0-1.0); EOS # 0.2 10*3/uL (0.0-0.4); EOS % 2.8 % (1.0-4.0); HEMATOCRIT 31.7 % (37.0-47.0); LYMPH % 18.1 % (27.0-41.0); MEAN CELL VOLUME 85.7 fl (81.0-99.0); MEAN CORPUSCULAR HGB 25.1 pg (27.0-31.0); MEAN CORPUSCULAR HGB CONC 29.3 g/dl (33.0-37.0); MEAN PLATELET VOLUME 11.1 fl (9.6-12.3); MONO # 0.7 10*3/uL (0.1-1.0); MONO % 12.7 % (3.0-9.0); NEUT # 3.7 10*3/uL (2.3-7.9); PLATELET COUNT AUTOMATED 282 10*3/uL (130-400); RED CELL DISTRI WIDTH 23.3 % (0-14.5); WHITE BLOOD COUNT 5.8 10*3/uL (4.8-10.8)
[2020-12-03 06:21] LABS: ALBUMIN 2.4 gm/dl (3.1-4.5); ALKALINE PHOSPHATASE 234 U/L (45-117); BUN 16 mg/dl (7-24); CHLORIDE 114 mmol/L (98-107); CREATININE 0.82 mg/dL (0.55-1.02); POTASSIUM 3.9 mmol/L (3.5-5.1); SGOT/AST 66 IU/L (3-35); SGPT/ALT 38 U/L (12-78); SODIUM 140 mmol/L (136-145); TOTAL PROTEIN 7.1 gm/dL (6.4-8.2)
[2020-12-03 08:00] VITALS: BP 132/71
[2020-12-03 12:00] VITALS: BP 136/78
[2020-12-03 20:00] VITALS: BP 123/80
[2020-12-04] VITALS: BP 126/64
[2020-12-04 04:00] VITALS: BP 110/54
[2020-12-04 06:09] LABS: ALBUMIN 2.7 gm/dl (3.1-4.5); ALKALINE PHOSPHATASE 271 U/L (45-117); BUN 14 mg/dl (7-24); CHLORIDE 114 mmol/L (98-107); CREATININE 0.78 mg/dL (0.55-1.02); SGOT/AST 62 IU/L (3-35); SGPT/ALT 44 U/L (12-78); SODIUM 140 mmol/L (136-145); TOTAL PROTEIN 7.5 gm/dL (6.4-8.2)
[2020-12-04 06:11] LABS: POTASSIUM 5.3 mmol/L (3.5-5.1)
[2020-12-04 06:20] LABS: BASO % 0.5 % (0.0-1.0); EOS # 0.2 10*3/uL (0.0-0.4); EOS % 2.1 % (1.0-4.0); HEMATOCRIT 32.5 % (37.0-47.0); LYMPH # 1.4 10*3/uL (1.3-4.4); LYMPH % 18.1 % (27.0-41.0); MEAN CELL VOLUME 87.4 fl (81.0-99.0); MEAN CORPUSCULAR HGB 24.7 pg (27.0-31.0); MEAN CORPUSCULAR HGB CONC 28.3 g/dl (33.0-37.0); MEAN PLATELET VOLUME 10.6 fl (9.6-12.3); MONO % 12.4 % (3.0-9.0); NEUT % 65.5 % (47.0-73.0); PLATELET COUNT AUTOMATED 301 10*3/uL (130-400); RED BLOOD COUNT 3.72 10*6/uL (4.10-5.10); RED CELL DISTRI WIDTH 23.9 % (0-14.5); WHITE BLOOD COUNT 7.6 10*3/uL (4.8-10.8)
[2020-12-04 08:00] VITALS: BP 121/66
[2020-12-04 12:00] VITALS: BP 141/76
[2020-12-04] MEDS ORDERED: CEPHALEXIN500 M1 PO (15:17)
[2020-12-04 16:00] VITALS: BP 129/57
== END 2020-12-04 19:16 | DRG 871 ==
LOC: ED 14:49 → EDHOLD 18:45 → 5E 12-01 20:21
PROVIDERS: Emergency Medicine; Hospitalist; Internal Medicine; Internal Medicine Nephrology; Physical Therapist; ADMIT Internal Medicine; ATTEND Internal Medicine
PROC: BD1BYZZ Fluoroscopy of Mouth/Oropharynx using Other Contrast (ICD-10-PCS; principal; 2020-12-03)
DX: A41.9 Sepsis, unspecified organism (principal); I50.31 Acute diastolic (congestive) heart failure; N17.0 Acute kidney failure with tubular necrosis; E43 Unspecified severe protein-calorie malnutrition; L03.115 Cellulitis of right lower limb; I13.0 Hypertensive heart and chronic kidney disease with heart failure and stage 1 through stage 4 chronic kidney disease, or unspecified chronic kidney disease; E87.2 Acidosis; J98.11 Atelectasis; Z20.822 Contact with and (suspected) exposure to COVID-19; E11.22 Type 2 diabetes mellitus with diabetic chronic kidney disease; E11.65 Type 2 diabetes mellitus with hyperglycemia; N18.30 Chronic kidney disease, stage 3 unspecified; R13.10 Dysphagia, unspecified; Z79.4 Long term (current) use of insulin; I48.91 Unspecified atrial fibrillation; R74.01 Elevation of levels of liver transaminase levels; Z96.653 Presence of artificial knee joint, bilateral; E80.6 Other disorders of bilirubin metabolism; E55.9 Vitamin D deficiency, unspecified; E78.5 Hyperlipidemia, unspecified; D50.9 Iron deficiency anemia, unspecified; E87.6 Hypokalemia; Z79.899 Other long term (current) drug therapy

== ENCOUNTER → 2021-01-28 | Outpatient (CLI) | payer MEDICARE ==
[~2021-01-28] MED LIST changes: +FEROSUL325 M1 PO
== END | disposition home or self-care (01) ==
LOC: US 13:30
PROVIDERS: ATTEND Podiatrist
DX: R59.0 Localized enlarged lymph nodes (principal); M79.89 Other specified soft tissue disorders; M79.661 Pain in right lower leg

== ENCOUNTER 2021-03-04 12:27 | Inpatient (IN) | payer MEDICARE ==
[~2021-03-04] VITALS: Ht 165.1 cm; Wt 97.1 kg
[2021-03-04 12:32] VITALS: BP 112/88
[2021-03-04 14:42] LABS: BASO % 0.4 % (0.0-1.0); EOS # 0.1 10*3/uL (0.0-0.4); HEMATOCRIT 34.4 % (37.0-47.0); LYMPH # 0.6 10*3/uL (1.3-4.4); LYMPH % 8.7 % (27.0-41.0); MEAN CELL VOLUME 89.6 fl (81.0-99.0); MEAN CORPUSCULAR HGB 25.5 pg (27.0-31.0); MEAN CORPUSCULAR HGB CONC 28.5 g/dl (33.0-37.0); MEAN PLATELET VOLUME 10.8 fl (9.6-12.3); MONO # 0.8 10*3/uL (0.1-1.0); MONO % 11.3 % (3.0-9.0); NEUT # 5.4 10*3/uL (2.3-7.9); PLATELET COUNT AUTOMATED 347 10*3/uL (130-400); RED BLOOD COUNT 3.84 10*6/uL (4.10-5.10); RED CELL DISTRI WIDTH 18.1 % (0-14.5); WHITE BLOOD COUNT 6.9 10*3/uL (4.8-10.8)
[2021-03-04 14:53] LABS: ALBUMIN 2.2 gm/dl (3.1-4.5); ALKALINE PHOSPHATASE 386 U/L (45-117); BUN 15 mg/dl (7-24); CHLORIDE 110 mmol/L (98-107); CPK 104 U/L (26-192); CREATININE 0.78 mg/dL (0.55-1.02); POTASSIUM 3.7 mmol/L (3.5-5.1); SGOT/AST 40 IU/L (3-35); SGPT/ALT 33 U/L (12-78); SODIUM 139 mmol/L (136-145); TOTAL PROTEIN 7.4 gm/dL (6.4-8.2)
[2021-03-04 14:54] LABS: ACT PARTIAL THROMBO TIME 28.7 SECONDS (20.0-32.1); INTERNATIONAL NORM RATIO 1.1 (2.0-3.5)
[2021-03-04 15:21] LABS: BILIRUBIN Negative (Negative); BLOOD Negative (Negative); CLARITY Clear (Clear); COLOR Yellow (Yellow); GLUCOSE Negative (Negative); KETONE Negative (Negative); LEUKO ESTERASE Negative (Negative); NITRITE Negative (Negative)
[2021-03-04 15:28] LABS: RBC 0-2 rbc/hpf (0-2)
[2021-03-04 15:29] LABS: BACTERIA TRACE; EPITHELIAL CELLS 0-2; WBC 0-2 wbc/hpf (0-5)
[2021-03-04 15:30] VITALS: BP 152/82
[2021-03-04 19:00] VITALS: BP 133/88
[2021-03-04 19:24] VITALS: BP 119/76
[2021-03-05] VITALS: BP 93/60
[2021-03-05 06:54] LABS: BASO % 0.5 % (0.0-1.0); EOS # 0.1 10*3/uL (0.0-0.4); EOS % 1.3 % (1.0-4.0); HEMATOCRIT 31.7 % (37.0-47.0); LYMPH # 0.7 10*3/uL (1.3-4.4); LYMPH % 10.7 % (27.0-41.0); MEAN CELL VOLUME 87.8 fl (81.0-99.0); MEAN CORPUSCULAR HGB 25.8 pg (27.0-31.0); MEAN CORPUSCULAR HGB CONC 29.3 g/dl (33.0-37.0); MEAN PLATELET VOLUME 10.4 fl (9.6-12.3); MONO # 0.9 10*3/uL (0.1-1.0); MONO % 13.7 % (3.0-9.0); NEUT # 4.6 10*3/uL (2.3-7.9); NEUT % 73.2 % (47.0-73.0); PLATELET COUNT AUTOMATED 333 10*3/uL (130-400); RED BLOOD COUNT 3.61 10*6/uL (4.10-5.10); RED CELL DISTRI WIDTH 18.3 % (0-14.5); WHITE BLOOD COUNT 6.3 10*3/uL (4.8-10.8)
[2021-03-05 07:12] LABS: CHLORIDE 111 mmol/L (98-107); POTASSIUM 3.5 mmol/L (3.5-5.1); SODIUM 140 mmol/L (136-145)
[2021-03-05 07:27] LABS: ALKALINE PHOSPHATASE 335 U/L (45-117); BUN 16 mg/dl (7-24); CREATININE 0.78 mg/dL (0.55-1.02); SGOT/AST 33 IU/L (3-35); SGPT/ALT 27 U/L (12-78); TOTAL PROTEIN 6.9 gm/dL (6.4-8.2)
[2021-03-05 08:00] VITALS: BP 106/49
[2021-03-05 12:00] VITALS: BP 101/47
[2021-03-05 16:00] VITALS: BP 178/105
[2021-03-05 20:00] VITALS: BP 117/60
[2021-03-06] VITALS: BP 121/58
[2021-03-06 06:20] LABS: BASO % 0.7 % (0.0-1.0); EOS # 0.1 10*3/uL (0.0-0.4); EOS % 2.3 % (1.0-4.0); HEMATOCRIT 30.5 % (37.0-47.0); LYMPH # 0.7 10*3/uL (1.3-4.4); LYMPH % 12.8 % (27.0-41.0); MEAN CELL VOLUME 87.1 fl (81.0-99.0); MEAN CORPUSCULAR HGB 25.4 pg (27.0-31.0); MEAN CORPUSCULAR HGB CONC 29.2 g/dl (33.0-37.0); MEAN PLATELET VOLUME 9.7 fl (9.6-12.3); MONO # 0.7 10*3/uL (0.1-1.0); MONO % 12.5 % (3.0-9.0); NEUT # 4.1 10*3/uL (2.3-7.9); PLATELET COUNT AUTOMATED 308 10*3/uL (130-400); RED CELL DISTRI WIDTH 18.4 % (0-14.5); WHITE BLOOD COUNT 5.8 10*3/uL (4.8-10.8)
[2021-03-06 06:44] LABS: ALBUMIN 1.9 gm/dl (3.1-4.5); BUN 17 mg/dl (7-24); CHLORIDE 114 mmol/L (98-107); CREATININE 0.83 mg/dL (0.55-1.02); POTASSIUM 3.4 mmol/L (3.5-5.1); SGOT/AST 29 IU/L (3-35); SGPT/ALT 24 U/L (12-78); SODIUM 142 mmol/L (136-145)
[2021-03-06 06:47] LABS: ALKALINE PHOSPHATASE 303 U/L (45-117); TOTAL PROTEIN 6.4 gm/dL (6.4-8.2)
[2021-03-06 08:00] VITALS: BP 133/52
[2021-03-06 12:00] VITALS: BP 100/79
[2021-03-06 16:00] VITALS: BP 119/61
[2021-03-06 20:00] VITALS: BP 126/74
[2021-03-07] VITALS: BP 123/69
[2021-03-07 06:39] LABS: ALKALINE PHOSPHATASE 350 U/L (45-117); CHLORIDE 112 mmol/L (98-107); POTASSIUM 4.3 mmol/L (3.5-5.1); SODIUM 138 mmol/L (136-145)
[2021-03-07 06:41] LABS: BASO % 0.5 % (0.0-1.0); EOS # 0.1 10*3/uL (0.0-0.4); EOS % 1.6 % (1.0-4.0); HEMATOCRIT 31.9 % (37.0-47.0); LYMPH # 0.6 10*3/uL (1.3-4.4); LYMPH % 10.1 % (27.0-41.0); MEAN CELL VOLUME 89.9 fl (81.0-99.0); MEAN CORPUSCULAR HGB 25.9 pg (27.0-31.0); MEAN CORPUSCULAR HGB CONC 28.8 g/dl (33.0-37.0); MEAN PLATELET VOLUME 11.2 fl (9.6-12.3); MONO # 0.9 10*3/uL (0.1-1.0); MONO % 13.4 % (3.0-9.0); NEUT # 4.7 10*3/uL (2.3-7.9); NEUT % 73.9 % (47.0-73.0); PLATELET COUNT AUTOMATED 354 10*3/uL (130-400); RED BLOOD COUNT 3.55 10*6/uL (4.10-5.10); RED CELL DISTRI WIDTH 18.4 % (0-14.5); WHITE BLOOD COUNT 6.4 10*3/uL (4.8-10.8)
[2021-03-07 06:44] LABS: ALBUMIN 1.8 gm/dl (3.1-4.5); BUN 20 mg/dl (7-24); CREATININE 0.88 mg/dL (0.55-1.02); SGOT/AST 37 IU/L (3-35); SGPT/ALT 28 U/L (12-78); TOTAL PROTEIN 6.8 gm/dL (6.4-8.2)
[2021-03-07 12:00] VITALS: BP 135/70
[2021-03-07 16:00] VITALS: BP 137/60
[2021-03-07 20:00] VITALS: BP 126/72
[2021-03-08] VITALS: BP 143/87
[2021-03-08 05:52] LABS: ALBUMIN 1.9 gm/dl (3.1-4.5); ALKALINE PHOSPHATASE 368 U/L (45-117); BUN 22 mg/dl (7-24); CHLORIDE 111 mmol/L (98-107); CREATININE 0.83 mg/dL (0.55-1.02); POTASSIUM 4.1 mmol/L (3.5-5.1); SGOT/AST 38 IU/L (3-35); SGPT/ALT 29 U/L (12-78); SODIUM 139 mmol/L (136-145); TOTAL PROTEIN 7.1 gm/dL (6.4-8.2)
[2021-03-08 06:16] LABS: BASO % 0.5 % (0.0-1.0); EOS # 0.1 10*3/uL (0.0-0.4); EOS % 1.7 % (1.0-4.0); HEMATOCRIT 31.4 % (37.0-47.0); LYMPH # 0.8 10*3/uL (1.3-4.4); LYMPH % 14.5 % (27.0-41.0); MEAN CELL VOLUME 89.2 fl (81.0-99.0); MEAN CORPUSCULAR HGB 25.9 pg (27.0-31.0); MEAN PLATELET VOLUME 10.7 fl (9.6-12.3); MONO # 0.8 10*3/uL (0.1-1.0); MONO % 14.1 % (3.0-9.0); NEUT # 3.9 10*3/uL (2.3-7.9); NEUT % 68.5 % (47.0-73.0); PLATELET COUNT AUTOMATED 356 10*3/uL (130-400); RED BLOOD COUNT 3.52 10*6/uL (4.10-5.10); RED CELL DISTRI WIDTH 18.2 % (0-14.5); WHITE BLOOD COUNT 5.7 10*3/uL (4.8-10.8)
[2021-03-08 08:00] VITALS: BP 128/84
[2021-03-08 12:00] VITALS: BP 120/71
[2021-03-08 16:00] VITALS: BP 127/68
[2021-03-08 20:00] VITALS: BP 127/82
[2021-03-09] VITALS: BP 118/81
[2021-03-09 03:00] VITALS: BP 130/70
[2021-03-09 06:29] LABS: BASO % 0.6 % (0.0-1.0); EOS # 0.1 10*3/uL (0.0-0.4); EOS % 1.2 % (1.0-4.0); HEMATOCRIT 32.5 % (37.0-47.0); LYMPH # 0.7 10*3/uL (1.3-4.4); LYMPH % 10.9 % (27.0-41.0); MEAN CELL VOLUME 90.5 fl (81.0-99.0); MEAN CORPUSCULAR HGB 25.6 pg (27.0-31.0); MEAN CORPUSCULAR HGB CONC 28.3 g/dl (33.0-37.0); MEAN PLATELET VOLUME 10.3 fl (9.6-12.3); MONO # 0.9 10*3/uL (0.1-1.0); MONO % 13.4 % (3.0-9.0); NEUT # 4.7 10*3/uL (2.3-7.9); NEUT % 73.4 % (47.0-73.0); PLATELET COUNT AUTOMATED 344 10*3/uL (130-400); RED BLOOD COUNT 3.59 10*6/uL (4.10-5.10); RED CELL DISTRI WIDTH 18.3 % (0-14.5); WHITE BLOOD COUNT 6.4 10*3/uL (4.8-10.8)
[2021-03-09 06:52] LABS: CHLORIDE 111 mmol/L (98-107); POTASSIUM 4.4 mmol/L (3.5-5.1); SODIUM 137 mmol/L (136-145)
[2021-03-09 06:59] LABS: ALBUMIN 1.8 gm/dl (3.1-4.5); ALKALINE PHOSPHATASE 391 U/L (45-117); BUN 21 mg/dl (7-24); CREATININE 0.95 mg/dL (0.55-1.02); SGOT/AST 40 IU/L (3-35); SGPT/ALT 32 U/L (12-78); TOTAL PROTEIN 7.1 gm/dL (6.4-8.2)
[2021-03-09 08:00] VITALS: BP 131/72
[2021-03-09 12:00] VITALS: BP 123/80
[2021-03-09 15:07] LABS: ORGANISM ID Final report (.)
[2021-03-09 16:00] VITALS: BP 122/62
[2021-03-09 20:00] VITALS: BP 131/92
[2021-03-10] VITALS: BP 101/50
[2021-03-10 07:21] LABS: BASO % 0.6 % (0.0-1.0); EOS # 0.1 10*3/uL (0.0-0.4); EOS % 1.2 % (1.0-4.0); HEMATOCRIT 33.9 % (37.0-47.0); LYMPH # 0.8 10*3/uL (1.3-4.4); LYMPH % 11.6 % (27.0-41.0); MEAN CELL VOLUME 89.7 fl (81.0-99.0); MEAN CORPUSCULAR HGB 25.7 pg (27.0-31.0); MEAN CORPUSCULAR HGB CONC 28.6 g/dl (33.0-37.0); MEAN PLATELET VOLUME 10.8 fl (9.6-12.3); MONO # 0.8 10*3/uL (0.1-1.0); MONO % 11.7 % (3.0-9.0); NEUT # 4.9 10*3/uL (2.3-7.9); NEUT % 74.6 % (47.0-73.0); PLATELET COUNT AUTOMATED 393 10*3/uL (130-400); RED BLOOD COUNT 3.78 10*6/uL (4.10-5.10); RED CELL DISTRI WIDTH 18.2 % (0-14.5); WHITE BLOOD COUNT 6.6 10*3/uL (4.8-10.8)
[2021-03-10 07:39] LABS: ALKALINE PHOSPHATASE 402 U/L (45-117); BUN 21 mg/dl (7-24); CHLORIDE 110 mmol/L (98-107); CREATININE 0.88 mg/dL (0.55-1.02); POTASSIUM 5.2 mmol/L (3.5-5.1); SGOT/AST 46 IU/L (3-35); SGPT/ALT 32 U/L (12-78); SODIUM 136 mmol/L (136-145); TOTAL PROTEIN 7.6 gm/dL (6.4-8.2)
[2021-03-10 08:00] VITALS: BP 116/80
[2021-03-10 09:25] LABS: FREE T4 0.99 ng/dl (0.76-1.46)
[2021-03-10 09:30] LABS: THYROID STIM HORMONE (HS) 9.08 uIU/ml (0.358-4.75)
[2021-03-10 12:00] VITALS: BP 110/67
[2021-03-10 16:00] VITALS: BP 117/75
[2021-03-10 20:00] VITALS: BP 121/73
[2021-03-11] VITALS (9 sets, daily range): BP systolic 94–133; BP diastolic 49–75
[2021-03-11 03:33] LABS: BASO % 0.6 % (0.0-1.0); EOS # 0.1 10*3/uL (0.0-0.4); EOS % 1.3 % (1.0-4.0); HEMATOCRIT 31.7 % (37.0-47.0); LYMPH # 0.7 10*3/uL (1.3-4.4); LYMPH % 11.3 % (27.0-41.0); MEAN CELL VOLUME 90.1 fl (81.0-99.0); MEAN CORPUSCULAR HGB 25.3 pg (27.0-31.0); MEAN CORPUSCULAR HGB CONC 28.1 g/dl (33.0-37.0); MONO # 0.8 10*3/uL (0.1-1.0); MONO % 13.2 % (3.0-9.0); NEUT # 4.6 10*3/uL (2.3-7.9); PLATELET COUNT AUTOMATED 332 10*3/uL (130-400); RED BLOOD COUNT 3.52 10*6/uL (4.10-5.10); RED CELL DISTRI WIDTH 18.2 % (0-14.5); WHITE BLOOD COUNT 6.3 10*3/uL (4.8-10.8)
[2021-03-11 03:48] LABS: ALKALINE PHOSPHATASE 388 U/L (45-117); BUN 23 mg/dl (7-24); CHLORIDE 111 mmol/L (98-107); CREATININE 0.98 mg/dL (0.55-1.02); SGOT/AST 39 IU/L (3-35); SGPT/ALT 33 U/L (12-78); SODIUM 140 mmol/L (136-145)
[2021-03-11 03:49] LABS: POTASSIUM 4.1 mmol/L (3.5-5.1)
[2021-03-12] VITALS: BP 117/65
[2021-03-12 06:03] LABS: ALBUMIN 1.9 gm/dl (3.1-4.5); CREATININE 1.09 mg/dL (0.55-1.02); TOTAL PROTEIN 7.1 gm/dL (6.4-8.2)
[2021-03-12 06:07] LABS: BASO % 0.7 % (0.0-1.0); EOS # 0.1 10*3/uL (0.0-0.4); EOS % 1.6 % (1.0-4.0); HEMATOCRIT 30.2 % (37.0-47.0); LYMPH # 0.7 10*3/uL (1.3-4.4); LYMPH % 11.5 % (27.0-41.0); MEAN CELL VOLUME 88.6 fl (81.0-99.0); MEAN CORPUSCULAR HGB 25.5 pg (27.0-31.0); MEAN CORPUSCULAR HGB CONC 28.8 g/dl (33.0-37.0); MEAN PLATELET VOLUME 11.3 fl (9.6-12.3); MONO # 0.8 10*3/uL (0.1-1.0); MONO % 13.6 % (3.0-9.0); NEUT # 4.1 10*3/uL (2.3-7.9); NEUT % 72.3 % (47.0-73.0); PLATELET COUNT AUTOMATED 364 10*3/uL (130-400); RED BLOOD COUNT 3.41 10*6/uL (4.10-5.10); RED CELL DISTRI WIDTH 18.6 % (0-14.5); WHITE BLOOD COUNT 5.7 10*3/uL (4.8-10.8)
[2021-03-12 08:00] VITALS: BP 125/97
[2021-03-12 12:00] VITALS: BP 138/71
[2021-03-12 20:00] VITALS: BP 142/77
[2021-03-13] VITALS: BP 140/70
[2021-03-13 06:05] LABS: BASO # 0.1 10*3/uL (0.0-0.1); EOS # 0.1 10*3/uL (0.0-0.4); EOS % 1.5 % (1.0-4.0); HEMATOCRIT 30.3 % (37.0-47.0); LYMPH # 0.8 10*3/uL (1.3-4.4); MEAN CELL VOLUME 88.6 fl (81.0-99.0); MEAN CORPUSCULAR HGB 25.4 pg (27.0-31.0); MEAN CORPUSCULAR HGB CONC 28.7 g/dl (33.0-37.0); MEAN PLATELET VOLUME 11.3 fl (9.6-12.3); MONO # 0.9 10*3/uL (0.1-1.0); MONO % 14.7 % (3.0-9.0); NEUT # 4.1 10*3/uL (2.3-7.9); NEUT % 68.5 % (47.0-73.0); PLATELET COUNT AUTOMATED 359 10*3/uL (130-400); RED BLOOD COUNT 3.42 10*6/uL (4.10-5.10); RED CELL DISTRI WIDTH 18.5 % (0-14.5)
[2021-03-13 06:28] LABS: POTASSIUM 4.2 mmol/L (3.5-5.1)
[2021-03-13 06:31] LABS: CREATININE 1.33 mg/dL (0.55-1.02); TOTAL PROTEIN 7.1 gm/dL (6.4-8.2)
[2021-03-13 08:00] VITALS: BP 129/60
[2021-03-13 12:00] VITALS: BP 124/82
[2021-03-13 16:00] VITALS: BP 138/65
[2021-03-13 20:00] VITALS: BP 136/76
[2021-03-14] VITALS: BP 127/58
[2021-03-14 06:33] LABS: BASO # 0.1 10*3/uL (0.0-0.1); BASO % 0.8 % (0.0-1.0); EOS # 0.1 10*3/uL (0.0-0.4); EOS % 1.5 % (1.0-4.0); HEMATOCRIT 29.1 % (37.0-47.0); LYMPH # 0.7 10*3/uL (1.3-4.4); LYMPH % 12.2 % (27.0-41.0); MEAN CORPUSCULAR HGB CONC 29.2 g/dl (33.0-37.0); MEAN PLATELET VOLUME 10.8 fl (9.6-12.3); MONO # 0.8 10*3/uL (0.1-1.0); MONO % 13.7 % (3.0-9.0); NEUT # 4.3 10*3/uL (2.3-7.9); NEUT % 71.5 % (47.0-73.0); PLATELET COUNT AUTOMATED 336 10*3/uL (130-400); RED BLOOD COUNT 3.27 10*6/uL (4.10-5.10); RED CELL DISTRI WIDTH 18.4 % (0-14.5)
[2021-03-14 06:40] LABS: ALBUMIN 1.9 gm/dl (3.1-4.5); CREATININE 1.38 mg/dL (0.55-1.02); POTASSIUM 4.2 mmol/L (3.5-5.1); TOTAL PROTEIN 7.2 gm/dL (6.4-8.2)
[2021-03-14 08:00] VITALS: BP 132/67
[2021-03-14 12:00] VITALS: BP 106/57
[2021-03-14 16:00] VITALS: BP 140/88
[2021-03-14 20:00] VITALS: BP 122/69
[2021-03-15] VITALS: BP 113/63
[2021-03-15 06:26] LABS: ALBUMIN 1.9 gm/dl (3.1-4.5); BASO # 0.1 10*3/uL (0.0-0.1); BASO % 0.8 % (0.0-1.0); CREATININE 1.35 mg/dL (0.55-1.02); EOS # 0.1 10*3/uL (0.0-0.4); EOS % 1.3 % (1.0-4.0); HEMATOCRIT 28.9 % (37.0-47.0); LYMPH # 0.8 10*3/uL (1.3-4.4); MEAN CELL VOLUME 89.5 fl (81.0-99.0); MEAN CORPUSCULAR HGB 25.7 pg (27.0-31.0); MEAN CORPUSCULAR HGB CONC 28.7 g/dl (33.0-37.0); MONO # 0.9 10*3/uL (0.1-1.0); MONO % 14.2 % (3.0-9.0); NEUT # 4.2 10*3/uL (2.3-7.9); NEUT % 70.4 % (47.0-73.0); PLATELET COUNT AUTOMATED 313 10*3/uL (130-400); POTASSIUM 4.1 mmol/L (3.5-5.1); RED BLOOD COUNT 3.23 10*6/uL (4.10-5.10); RED CELL DISTRI WIDTH 18.3 % (0-14.5); TOTAL PROTEIN 7.3 gm/dL (6.4-8.2)
[2021-03-15 08:00] VITALS: BP 130/58
[2021-03-15 12:00] VITALS: BP 108/59
[2021-03-15 16:00] VITALS: BP 133/78
[2021-03-15 16:04] LABS: URINE CREATININE RANDOM 82.2 mg/dL
[2021-03-15 16:06] LABS: BILIRUBIN Negative (Negative); BLOOD 3+ (Negative); CLARITY Clear (Clear); COLOR Yellow (Yellow); GLUCOSE Negative (Negative); KETONE Negative (Negative); LEUKO ESTERASE Negative (Negative); NITRITE Negative (Negative); PH 5.5 (4.5-8.0); SPECIFIC GRAVITY 1.025 (1.001-1.030)
[2021-03-15 16:19] LABS: BACTERIA 2+; RBC TNTC rbc/hpf (0-2)
[2021-03-15 20:00] VITALS: BP 145/63
[2021-03-16] VITALS: BP 146/62
[2021-03-16 06:53] LABS: BASO # 0.1 10*3/uL (0.0-0.1); BASO % 0.8 % (0.0-1.0); EOS # 0.1 10*3/uL (0.0-0.4); HEMATOCRIT 27.6 % (37.0-47.0); LYMPH # 0.7 10*3/uL (1.3-4.4); LYMPH % 12.1 % (27.0-41.0); MEAN CELL VOLUME 87.6 fl (81.0-99.0); MEAN CORPUSCULAR HGB 25.4 pg (27.0-31.0); MEAN PLATELET VOLUME 10.3 fl (9.6-12.3); MONO # 0.8 10*3/uL (0.1-1.0); MONO % 12.8 % (3.0-9.0); NEUT # 4.3 10*3/uL (2.3-7.9); NEUT % 71.8 % (47.0-73.0); PLATELET COUNT AUTOMATED 295 10*3/uL (130-400); RED BLOOD COUNT 3.15 10*6/uL (4.10-5.10); RED CELL DISTRI WIDTH 18.2 % (0-14.5)
[2021-03-16 07:09] LABS: ALBUMIN 1.9 gm/dl (3.1-4.5); CREATININE 1.27 mg/dL (0.55-1.02); POTASSIUM 3.8 mmol/L (3.5-5.1)
[2021-03-16 07:11] LABS: TOTAL PROTEIN 7.1 gm/dL (6.4-8.2)
[2021-03-16 08:00] VITALS: BP 124/82
[2021-03-16 11:50] VITALS: BP 116/62
[2021-03-16 16:00] VITALS: BP 123/52
[2021-03-16 20:00] VITALS: BP 111/57
[2021-03-17] VITALS: BP 118/57
[2021-03-17 06:15] LABS: CREATININE 1.22 mg/dL (0.55-1.02); POTASSIUM 4.2 mmol/L (3.5-5.1)
[2021-03-17 06:26] LABS: BASO # 0.1 10*3/uL (0.0-0.1); BASO % 0.8 % (0.0-1.0); EOS # 0.2 10*3/uL (0.0-0.4); EOS % 2.4 % (1.0-4.0); HEMATOCRIT 29.2 % (37.0-47.0); LYMPH # 0.8 10*3/uL (1.3-4.4); LYMPH % 12.9 % (27.0-41.0); MEAN CELL VOLUME 88.5 fl (81.0-99.0); MEAN CORPUSCULAR HGB 25.8 pg (27.0-31.0); MEAN CORPUSCULAR HGB CONC 29.1 g/dl (33.0-37.0); MEAN PLATELET VOLUME 10.3 fl (9.6-12.3); MONO # 0.8 10*3/uL (0.1-1.0); MONO % 12.5 % (3.0-9.0); NEUT # 4.4 10*3/uL (2.3-7.9); NEUT % 71.1 % (47.0-73.0); PLATELET COUNT AUTOMATED 316 10*3/uL (130-400); RED CELL DISTRI WIDTH 18.2 % (0-14.5); WHITE BLOOD COUNT 6.2 10*3/uL (4.8-10.8)
[2021-03-17 08:00] VITALS: BP 113/53
[2021-03-17 12:00] VITALS: BP 118/73
[2021-03-17 15:07] LABS: A/G RATIO 0.6 (0.7-1.7); ALBUMIN 2.4 g/dL (2.9-4.4); ALPHA-1-GLOBULIN 0.3 g/dL (0.0-0.4); ALPHA-2-GLOBULIN 0.5 g/dL (0.4-1.0); BETA GLOBULIN 1.2 g/dL (0.7-1.3); FREE KAPPA LIGHT CHAINS 130.6 mg/L (3.3-19.4); FREE LAMBDA LIGHT CHAINS 73.2 mg/L (5.7-26.3); GAMMA GLOBULIN 2.2 g/dL (0.4-1.8); GLOBULIN, TOTAL 4.1 g/dL (2.2-3.9); KAPPA/LAMBDA RATIO 1.78 (0.26-1.65); M-SPIKE Not Observed g/dL (Not Observed); TOTAL PROTEIN, SERUM 6.5 g/dL (6.0-8.5)
[2021-03-17 16:00] VITALS: BP 132/71
[2021-03-17 20:00] VITALS: BP 107/55
[2021-03-18] VITALS: BP 119/62
[2021-03-18 06:25] LABS: BASO # 0.1 10*3/uL (0.0-0.1); BASO % 0.8 % (0.0-1.0); EOS # 0.1 10*3/uL (0.0-0.4); HEMATOCRIT 26.2 % (37.0-47.0); LYMPH # 0.7 10*3/uL (1.3-4.4); LYMPH % 11.9 % (27.0-41.0); MEAN CELL VOLUME 87.6 fl (81.0-99.0); MEAN CORPUSCULAR HGB 26.1 pg (27.0-31.0); MEAN CORPUSCULAR HGB CONC 29.8 g/dl (33.0-37.0); MEAN PLATELET VOLUME 11.1 fl (9.6-12.3); MONO # 0.9 10*3/uL (0.1-1.0); MONO % 14.2 % (3.0-9.0); NEUT # 4.3 10*3/uL (2.3-7.9); NEUT % 70.6 % (47.0-73.0); PLATELET COUNT AUTOMATED 307 10*3/uL (130-400); RED BLOOD COUNT 2.99 10*6/uL (4.10-5.10); RED CELL DISTRI WIDTH 18.1 % (0-14.5); WHITE BLOOD COUNT 6.1 10*3/uL (4.8-10.8)
[2021-03-18 06:34] LABS: CREATININE 1.2 mg/dL (0.55-1.02); POTASSIUM 3.6 mmol/L (3.5-5.1)
[2021-03-18 08:00] VITALS: BP 135/68
[2021-03-18 12:27] VITALS: BP 130/57
[2021-03-18 16:00] VITALS: BP 105/70
[2021-03-18 20:00] VITALS: BP 119/44
[2021-03-19] VITALS: BP 119/56
[2021-03-19 08:00] VITALS: BP 119/67
[2021-03-19 08:18] LABS: BASO % 0.7 % (0.0-1.0); EOS # 0.1 10*3/uL (0.0-0.4); EOS % 2.2 % (1.0-4.0); HEMATOCRIT 26.9 % (37.0-47.0); LYMPH # 0.7 10*3/uL (1.3-4.4); LYMPH % 12.7 % (27.0-41.0); MEAN CELL VOLUME 87.1 fl (81.0-99.0); MEAN CORPUSCULAR HGB 25.6 pg (27.0-31.0); MEAN CORPUSCULAR HGB CONC 29.4 g/dl (33.0-37.0); MEAN PLATELET VOLUME 10.6 fl (9.6-12.3); MONO # 0.7 10*3/uL (0.1-1.0); MONO % 13.3 % (3.0-9.0); NEUT # 3.9 10*3/uL (2.3-7.9); NEUT % 70.7 % (47.0-73.0); PLATELET COUNT AUTOMATED 303 10*3/uL (130-400); RED BLOOD COUNT 3.09 10*6/uL (4.10-5.10); RED CELL DISTRI WIDTH 18.3 % (0-14.5); WHITE BLOOD COUNT 5.6 10*3/uL (4.8-10.8)
[2021-03-19 08:34] LABS: CREATININE 1.2 mg/dL (0.55-1.02); POTASSIUM 3.5 mmol/L (3.5-5.1)
[2021-03-19 12:00] VITALS: BP 127/64
[2021-03-19 12:07] LABS: ALBUMIN, URINE RANDOM 33.8 % (.); ALPHA-1-GLOBULIN, URINE 4.1 % (.); GAMMA GLOBULIN, URINE 35.9 % (.); M-SPIKE % Comment: % (Not Observed); PROTEIN,TOTAL - URINE RANDOM 105.6 mg/dL (Not Estab.)
[2021-03-19 16:00] VITALS: BP 110/62
[2021-03-20] VITALS: BP 117/55
[2021-03-20 06:12] LABS: POTASSIUM 2.9 mmol/L (3.5-5.1)
[2021-03-20 06:13] LABS: BASO % 0.7 % (0.0-1.0); CREATININE 1.17 mg/dL (0.55-1.02); EOS # 0.1 10*3/uL (0.0-0.4); EOS % 2.6 % (1.0-4.0); HEMATOCRIT 26.1 % (37.0-47.0); LYMPH # 0.8 10*3/uL (1.3-4.4); LYMPH % 14.2 % (27.0-41.0); MEAN CELL VOLUME 85.3 fl (81.0-99.0); MEAN CORPUSCULAR HGB 25.8 pg (27.0-31.0); MEAN CORPUSCULAR HGB CONC 30.3 g/dl (33.0-37.0); MEAN PLATELET VOLUME 10.6 fl (9.6-12.3); MONO # 0.8 10*3/uL (0.1-1.0); MONO % 14.5 % (3.0-9.0); NEUT # 3.7 10*3/uL (2.3-7.9); NEUT % 67.6 % (47.0-73.0); PLATELET COUNT AUTOMATED 326 10*3/uL (130-400); RED BLOOD COUNT 3.06 10*6/uL (4.10-5.10); RED CELL DISTRI WIDTH 18.4 % (0-14.5); WHITE BLOOD COUNT 5.4 10*3/uL (4.8-10.8)
[2021-03-20 08:00] VITALS: BP 114/68
[2021-03-20 12:00] VITALS: BP 112/67
[2021-03-20 15:49] VITALS: BP 110/55
[2021-03-20 20:00] VITALS: BP 132/61
[2021-03-21] VITALS: BP 111/84
[2021-03-21 06:39] LABS: BASO % 0.3 % (0.0-1.0); EOS # 0.2 10*3/uL (0.0-0.4); EOS % 2.7 % (1.0-4.0); HEMATOCRIT 25.6 % (37.0-47.0); LYMPH # 0.7 10*3/uL (1.3-4.4); MEAN CELL VOLUME 87.7 fl (81.0-99.0); MEAN CORPUSCULAR HGB CONC 29.7 g/dl (33.0-37.0); MEAN PLATELET VOLUME 11.1 fl (9.6-12.3); MONO # 0.9 10*3/uL (0.1-1.0); MONO % 14.5 % (3.0-9.0); NEUT # 4.5 10*3/uL (2.3-7.9); NEUT % 71.3 % (47.0-73.0); PLATELET COUNT AUTOMATED 331 10*3/uL (130-400); RED BLOOD COUNT 2.92 10*6/uL (4.10-5.10); RED CELL DISTRI WIDTH 18.3 % (0-14.5); WHITE BLOOD COUNT 6.3 10*3/uL (4.8-10.8)
[2021-03-21 06:49] LABS: CREATININE 1.22 mg/dL (0.55-1.02); POTASSIUM 3.6 mmol/L (3.5-5.1)
[2021-03-21 09:00] VITALS: BP 109/57
[2021-03-21 12:00] VITALS: BP 100/54
[2021-03-21 16:00] VITALS: BP 112/65
[2021-03-21 20:00] VITALS: BP 126/65
[2021-03-22] VITALS: BP 93/54
[2021-03-22 06:20] LABS: BASO % 0.6 % (0.0-1.0); EOS # 0.2 10*3/uL (0.0-0.4); EOS % 3.9 % (1.0-4.0); HEMATOCRIT 24.5 % (37.0-47.0); LYMPH # 0.8 10*3/uL (1.3-4.4); LYMPH % 16.2 % (27.0-41.0); MEAN CELL VOLUME 86.9 fl (81.0-99.0); MEAN CORPUSCULAR HGB 25.9 pg (27.0-31.0); MEAN CORPUSCULAR HGB CONC 29.8 g/dl (33.0-37.0); MONO # 0.9 10*3/uL (0.1-1.0); MONO % 16.8 % (3.0-9.0); NEUT # 3.2 10*3/uL (2.3-7.9); NEUT % 62.1 % (47.0-73.0); PLATELET COUNT AUTOMATED 297 10*3/uL (130-400); RED BLOOD COUNT 2.82 10*6/uL (4.10-5.10); RED CELL DISTRI WIDTH 18.2 % (0-14.5); WHITE BLOOD COUNT 5.1 10*3/uL (4.8-10.8)
[2021-03-22 06:27] LABS: ALBUMIN 1.7 gm/dl (3.1-4.5); CREATININE 1.1 mg/dL (0.55-1.02); POTASSIUM 3.2 mmol/L (3.5-5.1)
[2021-03-22 08:00] VITALS: BP 117/65
[2021-03-22 12:00] VITALS: BP 154/59
[2021-03-22 16:00] VITALS: BP 140/62
[2021-03-22 18:34] LABS: BASO % 0.7 % (0.0-1.0); EOS # 0.1 10*3/uL (0.0-0.4); EOS % 2.4 % (1.0-4.0); HEMATOCRIT 27.2 % (37.0-47.0); LYMPH # 0.6 10*3/uL (1.3-4.4); MEAN CELL VOLUME 89.2 fl (81.0-99.0); MEAN CORPUSCULAR HGB 25.6 pg (27.0-31.0); MEAN CORPUSCULAR HGB CONC 28.7 g/dl (33.0-37.0); MEAN PLATELET VOLUME 10.9 fl (9.6-12.3); MONO # 0.9 10*3/uL (0.1-1.0); MONO % 14.7 % (3.0-9.0); NEUT # 4.1 10*3/uL (2.3-7.9); NEUT % 71.7 % (47.0-73.0); PLATELET COUNT AUTOMATED 339 10*3/uL (130-400); RED BLOOD COUNT 3.05 10*6/uL (4.10-5.10); RED CELL DISTRI WIDTH 18.5 % (0-14.5); WHITE BLOOD COUNT 5.8 10*3/uL (4.8-10.8)
[2021-03-22 20:00] VITALS: BP 131/55
[2021-03-23] VITALS: BP 115/58
[2021-03-23 07:03] LABS: BASO % 0.8 % (0.0-1.0); EOS # 0.2 10*3/uL (0.0-0.4); EOS % 3.6 % (1.0-4.0); HEMATOCRIT 25.8 % (37.0-47.0); LYMPH # 0.7 10*3/uL (1.3-4.4); LYMPH % 13.3 % (27.0-41.0); MEAN CELL VOLUME 87.2 fl (81.0-99.0); MEAN CORPUSCULAR HGB 25.3 pg (27.0-31.0); MEAN CORPUSCULAR HGB CONC 29.1 g/dl (33.0-37.0); MEAN PLATELET VOLUME 9.8 fl (9.6-12.3); MONO # 0.8 10*3/uL (0.1-1.0); MONO % 14.6 % (3.0-9.0); NEUT # 3.6 10*3/uL (2.3-7.9); NEUT % 67.3 % (47.0-73.0); PLATELET COUNT AUTOMATED 303 10*3/uL (130-400); RED BLOOD COUNT 2.96 10*6/uL (4.10-5.10); RED CELL DISTRI WIDTH 18.4 % (0-14.5); WHITE BLOOD COUNT 5.3 10*3/uL (4.8-10.8)
[2021-03-23 07:19] LABS: ALBUMIN 1.8 gm/dl (3.1-4.5); CREATININE 1.23 mg/dL (0.55-1.02); POTASSIUM 3.2 mmol/L (3.5-5.1); TOTAL PROTEIN 7.3 gm/dL (6.4-8.2)
[2021-03-23 08:00] VITALS: BP 108/51
[2021-03-23 12:00] VITALS: BP 98/45
[2021-03-23] MEDS ORDERED: XARELTO20 M1 PO (12:23)
[2021-03-23] MEDS ORDERED: XARE15TA PO (12:23)
[2021-03-23] MEDS ORDERED: FUROSEMIDE80 MG PO (12:23)
== END 2021-03-23 15:34 | DRG 853 ==
LOC: ED 12:27 → EDHOLD 15:50 → 4E 15:50 → EDHOLD 16:21 → 4E 18:04 → 5E 03-21 05:52
PROVIDERS: Emergency Medicine; Hospitalist; Internal Medicine; Registered Nurse; Student in an Organized Health Care Education/Training Program; ADMIT Internal Medicine; ATTEND Internal Medicine
PROC: 0JBK0ZZ Excision of Left Hand Subcutaneous Tissue and Fascia, Open Approach (ICD-10-PCS; principal; 2021-03-05)
PROC: 02HV33Z Insertion of Infusion Device into Superior Vena Cava, Percutaneous Approach (ICD-10-PCS; 2021-03-09)
PROC: 05PY03Z Removal of Infusion Device from Upper Vein, Open Approach (ICD-10-PCS; 2021-03-11)
PROC: 0JPV3XZ Removal of Tunneled Vascular Access Device from Upper Extremity Subcutaneous Tissue and Fascia, Percutaneous Approach (ICD-10-PCS; 2021-03-11)
DX: A41.9 Sepsis, unspecified organism (principal); N17.0 Acute kidney failure with tubular necrosis; L03.115 Cellulitis of right lower limb; E44.0 Moderate protein-calorie malnutrition; L03.116 Cellulitis of left lower limb; L97.929 Non-pressure chronic ulcer of unspecified part of left lower leg with unspecified severity; I13.0 Hypertensive heart and chronic kidney disease with heart failure and stage 1 through stage 4 chronic kidney disease, or unspecified chronic kidney disease; I50.32 Chronic diastolic (congestive) heart failure; Z20.822 Contact with and (suspected) exposure to COVID-19; M25.469 Effusion, unspecified knee; E11.69 Type 2 diabetes mellitus with other specified complication; E80.6 Other disorders of bilirubin metabolism; E78.5 Hyperlipidemia, unspecified; E55.9 Vitamin D deficiency, unspecified; I48.91 Unspecified atrial fibrillation; R65.20 Severe sepsis without septic shock; E87.8 Other disorders of electrolyte and fluid balance, not elsewhere classified; E11.65 Type 2 diabetes mellitus with hyperglycemia; R31.0 Gross hematuria; Z96.653 Presence of artificial knee joint, bilateral; I87.2 Venous insufficiency (chronic) (peripheral); N18.30 Chronic kidney disease, stage 3 unspecified; E11.622 Type 2 diabetes mellitus with other skin ulcer; E11.22 Type 2 diabetes mellitus with diabetic chronic kidney disease; Z79.899 Other long term (current) drug therapy; Z87.891 Personal history of nicotine dependence; Z79.4 Long term (current) use of insulin; Z68.39 Body mass index [BMI] 39.0-39.9, adult; E87.79 Other fluid overload

== ENCOUNTER → 2021-03-29 | Outpatient (CLI) | payer MEDICARE ==
[~2021-03-29] MED LIST changes: +FUROSEMIDE80 MG PO; +XARE15TA PO; +XARELTO20 M1 PO
== END ==
LOC: WOUNDCARE 02:40
PROVIDERS: ATTEND Nurse Practitioner Family
DX: E11.622 Type 2 diabetes mellitus with other skin ulcer (principal); L97.821 Non-pressure chronic ulcer of other part of left lower leg limited to breakdown of skin; L03.116 Cellulitis of left lower limb; D42.9 Neoplasm of uncertain behavior of meninges, unspecified; I13.0 Hypertensive heart and chronic kidney disease with heart failure and stage 1 through stage 4 chronic kidney disease, or unspecified chronic kidney disease; I50.9 Heart failure, unspecified; N18.9 Chronic kidney disease, unspecified; M19.90 Unspecified osteoarthritis, unspecified site; E78.5 Hyperlipidemia, unspecified; I48.91 Unspecified atrial fibrillation; Z87.891 Personal history of nicotine dependence; Z96.653 Presence of artificial knee joint, bilateral; Z89.021 Acquired absence of right finger(s); Z79.4 Long term (current) use of insulin; Z79.899 Other long term (current) drug therapy

== ENCOUNTER 2021-03-30 11:52 | Emergency (ER) | payer MEDICARE ==
[~2021-03-30] VITALS: Wt 93.0 kg
[2021-03-30 12:38] LABS: BASO % 0.4 % (0.0-1.0); EOS # 0.1 10*3/uL (0.0-0.4); EOS % 2.3 % (1.0-4.0); HEMATOCRIT 26.1 % (37.0-47.0); LYMPH # 0.6 10*3/uL (1.3-4.4); LYMPH % 10.9 % (27.0-41.0); MEAN CELL VOLUME 88.8 fl (81.0-99.0); MEAN CORPUSCULAR HGB 25.5 pg (27.0-31.0); MEAN CORPUSCULAR HGB CONC 28.7 g/dl (33.0-37.0); MEAN PLATELET VOLUME 10.2 fl (9.6-12.3); MONO # 0.8 10*3/uL (0.1-1.0); MONO % 13.7 % (3.0-9.0); NEUT # 4.1 10*3/uL (2.3-7.9); NEUT % 72.2 % (47.0-73.0); PLATELET COUNT AUTOMATED 381 10*3/uL (130-400); RED BLOOD COUNT 2.94 10*6/uL (4.10-5.10); RED CELL DISTRI WIDTH 18.6 % (0-14.5); WHITE BLOOD COUNT 5.6 10*3/uL (4.8-10.8)
[2021-03-30 12:52] LABS: CREATININE 1.24 mg/dL (0.55-1.02); POTASSIUM 4.1 mmol/L (3.5-5.1); TOTAL PROTEIN 7.8 gm/dL (6.4-8.2)
== END 2021-03-30 13:18 ==
LOC: ED 11:52
PROVIDERS: Student in an Organized Health Care Education/Training Program
DX: R59.0 Localized enlarged lymph nodes (principal); Z79.899 Other long term (current) drug therapy; Z87.891 Personal history of nicotine dependence

== ENCOUNTER 2021-04-19 12:40 | Emergency (ER) | payer MEDICARE | END 2021-04-19 12:45 | LOC: ED 12:40 | DX: I46.9 Cardiac arrest, cause unspecified (principal); I10 Essential (primary) hypertension; E11.9 Type 2 diabetes mellitus without complications; Z79.899 Other long term (current) drug therapy; Z98.890 Other specified postprocedural states; Z87.891 Personal history of nicotine dependence; Z98.51 Tubal ligation status ==